=== PATIENT | female | born 1970 | race Caucasian/White ===

== ENCOUNTER → 2019-09-25 14:40 | Outpatient (BNVA) | payer OTHER, SELFPAY | PROVIDERS: Family Provider Family Medicine; PCP Family Medicine; Visit Provider Nurse Practitioner Psychiatric/Mental Health | DX: F41.1 Generalized anxiety disorder (principal) | CPT/HCPCS: 80061; 83036 ==

== ENCOUNTER → 2019-11-14 07:25 | Outpatient (BNVA) | payer MEDICARE, MEDICAID, SELFPAY | PROVIDERS: Family Provider Family Medicine; PCP Family Medicine; Visit Provider Nurse Practitioner Psychiatric/Mental Health | DX: F33.2 Major depressive disorder, recurrent severe without psychotic features (principal); F43.12 Post-traumatic stress disorder, chronic; F41.1 Generalized anxiety disorder; F17.210 Nicotine dependence, cigarettes, uncomplicated; F15.21 Other stimulant dependence, in remission | CPT/HCPCS: 99214 ==

== ENCOUNTER → 2019-11-19 14:56 | Outpatient (BNVA) | payer MEDICARE, MEDICAID, SELFPAY | PROVIDERS: Family Provider Family Medicine; PCP Family Medicine; Visit Provider Social Worker Clinical | DX: F41.1 Generalized anxiety disorder (principal); F15.21 Other stimulant dependence, in remission; F43.12 Post-traumatic stress disorder, chronic; F33.2 Major depressive disorder, recurrent severe without psychotic features | CPT/HCPCS: 90834 ==

== ENCOUNTER → 2020-03-20 09:05 | Outpatient (BNVA) | payer MEDICARE, MEDICAID, SELFPAY ==
[2019-09-26 11:36] VITALS: BP 154/97; BMI 40.2
== END ==
PROVIDERS: Family Provider Family Medicine; PCP Family Medicine; Visit Provider Nurse Practitioner Psychiatric/Mental Health
DX: F33.2 Major depressive disorder, recurrent severe without psychotic features (principal); F43.12 Post-traumatic stress disorder, chronic; F41.1 Generalized anxiety disorder; F17.210 Nicotine dependence, cigarettes, uncomplicated; F15.21 Other stimulant dependence, in remission
CPT/HCPCS: 99214

== ENCOUNTER → 2020-05-19 08:11 | Outpatient (BNVA) | payer MEDICARE, MEDICAID, SELFPAY ==
[2019-09-26 11:36] VITALS: BP 154/97; BMI 40.2
== END ==
PROVIDERS: PCP Family Medicine; Visit Provider Nurse Practitioner Psychiatric/Mental Health
DX: F33.2 Major depressive disorder, recurrent severe without psychotic features (principal); F43.12 Post-traumatic stress disorder, chronic; F41.1 Generalized anxiety disorder; F17.210 Nicotine dependence, cigarettes, uncomplicated; F12.20 Cannabis dependence, uncomplicated; F15.21 Other stimulant dependence, in remission
CPT/HCPCS: 99214

== ENCOUNTER → 2020-08-28 13:26 | Outpatient (BNVA) | payer MEDICARE, MEDICAID, SELFPAY ==
[2019-09-26 11:36] VITALS: BP 154/97; BMI 40.2
== END ==
PROVIDERS: PCP Family Medicine; Visit Provider Specialist
DX: G43.711 Chronic migraine without aura, intractable, with status migrainosus (principal); G47.10 Hypersomnia, unspecified; R20.0 Anesthesia of skin; R20.2 Paresthesia of skin; F43.12 Post-traumatic stress disorder, chronic; E66.01 Morbid (severe) obesity due to excess calories; Z68.39 Body mass index [BMI] 39.0-39.9, adult; F17.210 Nicotine dependence, cigarettes, uncomplicated
CPT/HCPCS: 64615; 99214; J0585

== ENCOUNTER → 2020-10-15 08:01 | Outpatient (BNVA) | payer MEDICARE, MEDICAID, SELFPAY ==
[2019-09-26 11:36] VITALS: BP 154/97; BMI 40.2
== END ==
PROVIDERS: PCP Family Medicine; Visit Provider Nurse Practitioner Psychiatric/Mental Health
DX: F33.2 Major depressive disorder, recurrent severe without psychotic features (principal); F43.12 Post-traumatic stress disorder, chronic; F41.1 Generalized anxiety disorder; F17.210 Nicotine dependence, cigarettes, uncomplicated; F12.20 Cannabis dependence, uncomplicated; Z79.899 Other long term (current) drug therapy; F15.21 Other stimulant dependence, in remission
CPT/HCPCS: 99214

== ENCOUNTER → 2020-11-11 08:29 | Outpatient (BNVA) | payer MEDICARE, MEDICAID, SELFPAY ==
[2019-09-26 11:36] VITALS: BP 154/97; BMI 40.2
== END ==
PROVIDERS: PCP Family Medicine; Visit Provider Nurse Practitioner Psychiatric/Mental Health
DX: F33.2 Major depressive disorder, recurrent severe without psychotic features (principal); F43.12 Post-traumatic stress disorder, chronic; F41.1 Generalized anxiety disorder; F17.210 Nicotine dependence, cigarettes, uncomplicated; F12.20 Cannabis dependence, uncomplicated; F15.21 Other stimulant dependence, in remission
CPT/HCPCS: 99214

== ENCOUNTER → 2021-01-16 08:27 | Outpatient (BNVA) | payer MEDICARE, MEDICAID, SELFPAY ==
[2019-09-26 11:36] VITALS: BP 154/97; BMI 40.2
== END ==
PROVIDERS: PCP Family Medicine; Visit Provider Nurse Practitioner Psychiatric/Mental Health
DX: F33.2 Major depressive disorder, recurrent severe without psychotic features (principal); F41.1 Generalized anxiety disorder; F17.210 Nicotine dependence, cigarettes, uncomplicated; F12.20 Cannabis dependence, uncomplicated; F15.21 Other stimulant dependence, in remission
CPT/HCPCS: 99214

== ENCOUNTER → 2021-01-29 12:22 | Outpatient (BNVA) | payer MEDICARE, MEDICAID, SELFPAY ==
[2019-09-26 11:36] VITALS: BP 154/97; BMI 40.2
== END ==
PROVIDERS: PCP Family Medicine; Visit Provider Social Worker Clinical
DX: F41.1 Generalized anxiety disorder (principal); F15.21 Other stimulant dependence, in remission; F43.12 Post-traumatic stress disorder, chronic; F33.2 Major depressive disorder, recurrent severe without psychotic features
CPT/HCPCS: 90834

== ENCOUNTER → 2021-03-10 07:38 | Outpatient (BNVA) | payer MEDICARE, MEDICAID, SELFPAY ==
[2019-09-26 11:36] VITALS: BP 154/97; BMI 40.2
== END ==
PROVIDERS: PCP Family Medicine; Visit Provider Social Worker Clinical
DX: F41.1 Generalized anxiety disorder (principal); F15.21 Other stimulant dependence, in remission; F43.12 Post-traumatic stress disorder, chronic; F33.2 Major depressive disorder, recurrent severe without psychotic features
CPT/HCPCS: 90834

== ENCOUNTER → 2021-03-11 07:08 | Outpatient (BNVA) | payer MEDICARE, MEDICAID, SELFPAY ==
[2019-09-26 11:36] VITALS: BP 154/97; BMI 40.2
== END ==
PROVIDERS: PCP Family Medicine; Visit Provider Nurse Practitioner Psychiatric/Mental Health
DX: F33.2 Major depressive disorder, recurrent severe without psychotic features (principal); F43.12 Post-traumatic stress disorder, chronic; F41.1 Generalized anxiety disorder; F17.210 Nicotine dependence, cigarettes, uncomplicated; F12.20 Cannabis dependence, uncomplicated; F15.21 Other stimulant dependence, in remission
CPT/HCPCS: 99214

== ENCOUNTER → 2021-04-06 07:42 | Outpatient (BNVA) | payer MEDICARE, MEDICAID, SELFPAY ==
[2019-09-26 11:36] VITALS: BP 154/97; BMI 40.2
== END ==
PROVIDERS: PCP Family Medicine; Visit Provider Social Worker Clinical
DX: F41.1 Generalized anxiety disorder (principal); F15.21 Other stimulant dependence, in remission; F43.12 Post-traumatic stress disorder, chronic; F33.2 Major depressive disorder, recurrent severe without psychotic features
CPT/HCPCS: 90834

== ENCOUNTER → 2021-04-08 07:44 | Outpatient (BNVA) | payer MEDICARE, MEDICAID, SELFPAY ==
[2019-09-26 11:36] VITALS: BP 154/97; BMI 40.2
== END ==
PROVIDERS: PCP Family Medicine; Visit Provider Nurse Practitioner Psychiatric/Mental Health
DX: F33.2 Major depressive disorder, recurrent severe without psychotic features (principal); F43.12 Post-traumatic stress disorder, chronic; F41.1 Generalized anxiety disorder; F17.210 Nicotine dependence, cigarettes, uncomplicated; F12.20 Cannabis dependence, uncomplicated; F15.20 Other stimulant dependence, uncomplicated
CPT/HCPCS: 99214

== ENCOUNTER → 2021-04-23 13:21 | Outpatient (BNVA) | payer MEDICARE, MEDICAID, SELFPAY ==
[2019-09-26 11:36] VITALS: BP 154/97; BMI 40.2
== END ==
PROVIDERS: PCP Family Medicine; Visit Provider Specialist
DX: G43.709 Chronic migraine without aura, not intractable, without status migrainosus (principal); R26.9 Unspecified abnormalities of gait and mobility; R42 Dizziness and giddiness; F41.1 Generalized anxiety disorder; G47.10 Hypersomnia, unspecified; F17.210 Nicotine dependence, cigarettes, uncomplicated
CPT/HCPCS: 64615; 99214; 99215; J0585

== ENCOUNTER → 2021-04-29 12:06 | Outpatient (BNVA) | payer MEDICARE, MEDICAID, SELFPAY ==
[2019-09-26 11:36] VITALS: BP 154/97; BMI 40.2
== END ==
PROVIDERS: PCP Family Medicine; Visit Provider Social Worker Clinical
DX: F41.1 Generalized anxiety disorder (principal); F15.21 Other stimulant dependence, in remission; F43.12 Post-traumatic stress disorder, chronic; F33.2 Major depressive disorder, recurrent severe without psychotic features
CPT/HCPCS: 90834

== ENCOUNTER 2021-05-06 11:24 | Outpatient (CLI) | payer OTHER, SELFPAY ==
[2019-09-26 11:36] VITALS: BP 154/97; BMI 40.2
--- NOTE | 2021-05-06 11:40 | XR_ITS ---
WS: [id number] LUMBAR SPINE: 3 VIEWS TECHNIQUE: AP, lateral and L5-S1 spot. HISTORY: BACK PAIN COMPARISON: None available. Moderate straightening of the normal lumbar lordosis. No fractures. Mild degenerative disc disease an d endplate osteophytes at L4-5 and L5-S1 with mild facet joint arthritis. No acute fracture. Pedicles are all identified. Mild bilateral narrowing and sclerosis of the SI joints. No erosions. Postsurgical changes are noted within the adnexa. XR/XR lumbar spine 2-3V* [id number] IMPRESSION: 1. Moderate straightening of the normal lumbar spine. 2. Mild lumbar spondylitic changes. No fractures.
== END 2021-05-06 11:25 | disposition home or self-care (01) ==
LOC: RAD 11:31
PROVIDERS: PCP Family Medicine; Visit Provider Dermatology
DX: Z02.71 Encounter for disability determination (principal); M54.5 Low back pain
CPT/HCPCS: 72100

== ENCOUNTER → 2021-05-13 07:38 | Outpatient (BNVA) | payer MEDICARE, MEDICAID, OTHER, SELFPAY ==
[2019-09-26 11:36] VITALS: BP 154/97; BMI 40.2
== END ==
PROVIDERS: PCP Family Medicine; Visit Provider Nurse Practitioner Psychiatric/Mental Health
DX: F33.2 Major depressive disorder, recurrent severe without psychotic features (principal); F43.12 Post-traumatic stress disorder, chronic; F41.1 Generalized anxiety disorder; F17.210 Nicotine dependence, cigarettes, uncomplicated; Z79.899 Other long term (current) drug therapy; F12.20 Cannabis dependence, uncomplicated; F15.20 Other stimulant dependence, uncomplicated
CPT/HCPCS: 99214

== ENCOUNTER → 2021-09-23 13:44 | Outpatient (BNVA) | payer MEDICARE, MEDICAID, SELFPAY ==
[2019-09-26 11:36] VITALS: BP 154/97; BMI 40.2
== END ==
PROVIDERS: PCP Family Medicine; Visit Provider Specialist
DX: G43.711 Chronic migraine without aura, intractable, with status migrainosus (principal); F17.210 Nicotine dependence, cigarettes, uncomplicated
CPT/HCPCS: 64615; 99213; J0585

== ENCOUNTER 2021-11-02 09:58 | Outpatient (CLI) | payer MEDICARE, MEDICAID, SELFPAY ==
[2019-09-26 11:36] VITALS: BP 154/97; BMI 40.2
--- NOTE | 2021-11-02 09:30 | MR_ITS ---
WS: [id number] MRI BRAIN WITHOUT CONTRAST HISTORY: G43.711 - Chronic migraine without aura, intractable, blackouts with amnesia. COMPARISON: 12/01/2016 TECHNIQUE: Diffusion imaging, multiplanar T1, T2 and FLAIR imaging obtained. No evidence for acute infarct or hemorrhage. Yu-white matter differentiation is normal. No signific ant atrophy. No hemorrhage. No remote or acute infarcts are volume loss. Ventricles and extra-axial spaces are normal. No inferior displacement of cerebellar tonsils. The sella turcica and pituitary gland are unremarkabl e. Dural venous sinuses and [place] demonstrate no abnormality on this unenhanced studies. Paranasal sinuses: Clear. Mastoid air cells: Normal. Calvarium and scalp: Intact. MR/MR head wo con* [id number] IMPRESSION: 1. Unremarkable noncontrast MRI brain. 2. No acute infarct or prior infarct. No significant microvascular disease.
== END 2021-11-02 09:59 | disposition home or self-care (01) ==
LOC: RAD 10:01
PROVIDERS: PCP Family Medicine; Visit Provider Specialist
DX: G43.711 Chronic migraine without aura, intractable, with status migrainosus (principal)
CPT/HCPCS: 70551

== ENCOUNTER → 2022-03-25 14:44 | Outpatient (BNVA) | payer MEDICARE, MEDICAID, SELFPAY ==
[2019-09-26 11:36] VITALS: BP 154/97; BMI 40.2
== END ==
PROVIDERS: PCP Family Medicine; Visit Provider Specialist
DX: R42 Dizziness and giddiness (principal); R55 Syncope and collapse; G43.711 Chronic migraine without aura, intractable, with status migrainosus; I10 Essential (primary) hypertension
CPT/HCPCS: 64615; 99213; 99214; J0585

== ENCOUNTER → 2022-09-30 08:38 | Outpatient (BNVA) | payer MEDICARE, MEDICAID, SELFPAY ==
[2019-09-26 11:36] VITALS: BP 154/97; BMI 40.2
== END ==
PROVIDERS: PCP Family Medicine; Visit Provider Specialist
DX: G43.711 Chronic migraine without aura, intractable, with status migrainosus (principal); Z71.89 Other specified counseling; F41.1 Generalized anxiety disorder; F43.12 Post-traumatic stress disorder, chronic
CPT/HCPCS: 64615; J0585

== ENCOUNTER 2022-12-30 17:01 | Emergency (ER) | payer MEDICARE, MEDICAID, SELFPAY ==
[2019-09-26 11:36] VITALS: BP 154/97; BMI 40.2
[2022-12-30 17:02] VITALS: BP 176/87; PULSE 72; RESP 18; TEMP 36.6; O2SAT 98; BMI 38.7
--- NOTE | 2022-12-30 17:03 | ED_ITS ---
HPI - Fall General: Chief Complaint: Fall Stated Complaint: FALL Time Seen by Provider: 12/30/22 17:03 History of Present Illness: Ms Mohr is a 52-year-old lady with history of frequent falls presenting to the emergency department due to fall with knee pain. She reports onset of fall with ambulation 2 days ago falling forward landing on her hands and knees. She immediately had pain and felt a popping/heard a popping in the right knee. Since that time she has been unable to ambulate and unable to extend her knee. She notes some distal tingling and coolness compared to contralateral side. Moderate to severe intensity symptoms. No other specific changes in health, exacerbating, or alleviating factors identified. Onset (ago): day(s) Fall from: standing Place fall occurred: home Loss of consciousness: None Prolonged down time: no Symptoms prior to fall: none Context: history of frequent falls Location of injury - extremities: Right: knee Severity: moderate Review of Systems General: Reports: 10 or more systems reviewed and unremarkable except in HPI and below PFSH ED PFSH: Medical History Cannabis dependence with current use Chronic post-traumatic stress disorder Generalized anxiety disorder Major depressive disorder, recurrent severe without psychotic features Nicotine dependence, cigarettes, uncomplicated Stimulant dependence, episodic Family History Mother Hypertension Hyperlipidemia Diabetes Stroke Parkinson disease Father , colon cancer No problems noted. Social History Smoking and tobacco status: current every day smoker (Vapes) cigarettes Packs smoked per day: 1 Years cigarettes smoked: 14 Quit status (tobacco): not considering quitting Second hand smoke exposure: Yes Smoking risk assessment/counseling performed?: Yes Tobacco counseling given: provider counseling Alcohol intake: current Alcohol intake frequency: holidays/special occasions only Alcohol type: hard liquor Substance/Drug Use: current Substance/Drug use frequency: daily Other substance/drug use details: prior heavy meth use, LSD, acid Desire information about substance/drug rehabilitation?: No Adopted: No Caregiver/support person: No Lives independently: Yes Household members: significant other Housing: Manufactured/Mobile home Marital status: Legally Marital status details: but living with current significant other for 5 years Number of children: 0 Number of grandchildren: 0 Highest education level completed: High School Graduate service: No Current occupational status: disabled Previous occupational history: wood working Pets and animals: Yes Pets & animals: cat(s) and dog(s) Pets & animal details: 2 dogs and 1 cat inside, 16 cats outside Leisure activites: other Leisure activities details: decorating her home, gardening, camping and floating Sexually active: Yes Do you think of yourself as: Straight/Heterosexual Current gender identity: Female Estrella/Religious: None Special estrella needs: No Agree to transfusion: Yes Financial difficulty paying for basics: Somewhat Hard Female Reproductive History: Para: 0 Spontaneous abortions: No Physical Exam Const: COMMON NORMALS: alert GENERAL APPEARANCE: cooperative and well developed HENMT: COMMON NORMALS: normocephalic and atraumatic HEAD & SCALP: normocephalic and atraumatic Eye: COMMON NORMALS: conjunctivae normal CONJUNCTIVA: Yes conjunctivae no rmal SCLERA: sclerae normal Neck/C-Spine: COMMON NORMALS: supple GENERAL: Yes trachea midline Resp: COMMON NORMALS: normal respiratory effort EFFORT & INSPECTION: Yes able to speak in complete sentences Cardio: COMMON NORMALS: regular rate and regular rhythm RATE: regular rate RHYTHM: regular rhythm OTHER: Palpable DP/PT bilateral GI: COMMON NORMALS: Soft to palpation PALPATION: Yes Soft to palpation and No Tenderness to palpation present (GI) Extremity: NARRATIVE EXTREMITY EXAM: Tenderness anterior knee palpation, soft tissue edema/joint effusion with some ecchymosis. GENERAL: Yes normal exam except as noted and No edema Neuro: COMMON NORMALS: moves all extremities SENSORIUM/ORIENTATION: Yes alert and No Orientation impaired Psych: COMMON NORMALS: mental status grossly normal and Normal thought process present THOUGHT PROCESS: Normal thought process present Course Vital Signs: Vital signs: Vital Signs Temperature 97.9 F 12/30/22 17:02 Pulse Rate 80 12/30/22 20:06 Respiratory Rate 18 12/30/22 17:24 Blood Pressure 149/104 12/30/22 19:00 Pulse Oximetry 97 12/30/22 20:06 Oxygen Delivery Me thod Room Air 12/30/22 19:00 MDM - Fall Medical Decision Making 52-year-old lady presenting with continued knee pain and difficulty straightening leg after fall. Patient has a frequent history following. Exam as above. X-ray notable for patella fracture. Patient given analgesia, I suspect most of patient's inability to extend leg is secondary to pain however exam is somewhat equivocal. Discussed case with orthopedics who came to evaluate the patient. Patient satisfactory for outpatient management, weightbearing as tolerated instructions given with knee immobilizer and crutches. I will message case management for orthopedic follow- up in the outpatient setting. Most likely etiology of patient's symptoms is patella fracture secondary to fall of the right knee. The results of ED evaluation were discussed with the patient including prescriptions and/or symptomatic cares (if applicable) including appropriate and responsible use, followup plan, and return precautions. The patient verbalized understanding and felt safe for discharge. Medical Records I reviewed the patient's medical records. Lab Data I reviewed the patient's lab results. Radiology Impressions Knee X-Ray 12/30/22 17:12 IMPRESSION: Nondisplaced fracture of the mid pole of the patella. Moderate knee joint effusion. Discharge Plan Discharge Patient Disposition: Home Clinical Impression: Fracture, patella Condition: Stable Prescriptions: New oxycodone 5 mg tablet 5 mg PO Q4H PRN (Reason: pain) Qty: 20 0RF No Action tizanidine 4 mg capsule 4 mg PO DAILY PRN lovastatin 10 mg tablet 10 mg PO DAILY gabapentin 300 mg capsule 300 mg PO TID metformin 500 mg tablet 500 mg PO DAILY omeprazole 20 mg capsule,delayed release(DR/EC) 20 mg PO DAILY hydroxyzine HCl 50 mg tablet 50 mg PO DAILY PRN (Reason: anxiety) Qty: 30 3RF Rx Instructions: Take one tablet daily as needed for anxiety fluoxetine [Prozac] 40 mg capsule 40 mg PO QAM Qty: 30 3RF Rx Instructions: Take one capsule every morning cyproheptadine 4 mg tablet 4 mg PO .HS Qty: 30 3RF Rx Instructions: Take one tablet at bedtime olanzapine [Zyprexa] 10 mg tablet 10 mg PO .bedtime Qty: 30 3RF Rx Instructions: Take one tablet at bedtime topiramate 100 mg tablet See Rx Instructions .ROUTE .COMPLEX Qty: 30 0RF Dose Instruction: TAKE 1 TABLET BY MOUTH ONCE DAILY. APPOINTMENT REQUIRED FOR FUTURE REFILLS Rx Instructions: TAKE 1 TABLET BY MOUTH ONCE DAILY. APPOINTMENT REQUIRED FOR FUTURE REFILLS propranolol 20 mg tablet See Rx Instructions .ROUTE .COMPLEX Qty: 60 3RF Dose Instruction: TAKE 1 TABLET BY MOUTH TWICE DAILY. APPOINTMENT REQUIRED FOR FUTURE REFILLS Rx Instructions: TAKE 1 TABLET BY MOUTH TWICE DAILY. APPOINTMENT REQUIRED FOR FUTURE REFILLS Discharge Orders: Discharge ED (Routine); Ordered 12/30/22 Ordered By: Yaakov Sahni Referrals: Michael Soto [Primary Care Provider] - Discharge Diet: Usual diet Discharge Activity: Limit activity as instructed Patient Instructions: Crutch Instructions (ED), Patellar Fracture (ED), Knee Immobilizer (ED), Opioid Safety Activity Restrictions/Additional Instructions: Thank you for visiting the emergency department. You were seen and evaluated for knee pain after fall. You are found fracture of the patella. This will be treated with a knee immobilizer and crutches. I will message case management for follow-up with the orthopedic surgeon. You should be contacted for follow-up. I will prescribe oxycodone, use this cautiously as discussed. You may use [id number]-[id number] medications such as acetaminophen and ibuprofen for pain however please do not exceed the daily recommended dosage as listed on the packaging and please keep in mind that many namebrand medications contain the same active ingredients. Please avoid these medications if previously instructed to do so by another physician due to other underlying medical condition. Elevation and ice will likely also help. Use a 1:2 ratio of on time to off time for ice. Do not apply directly to the skin. For example if you apply ice for 15 minutes ensure that you remove it for at least 30 minutes before reapplying. Return to the emergency department for uncontrolled symptoms, or anything else that you are concerned about and feel needs emergency department evaluation. Coding Level of Care Code ED Camp Coordinator for Christ Cowan
--- NOTE | 2022-12-30 17:12 | XRR_ITS ---
PROCEDURE INFORMATION: Exam: XR Right Knee Exam date and time: 12/30/2022 5:17 PM Age: 52 years old Clinical indication: Injury or trauma; Fall; Fracture, traumatic; Closed fracture; Patella or knee; Right; Additional info: Fall, knee pain anterior, unable to ambulate/extend TECHNIQUE: Imaging protocol: Radiologic exam of the right knee. Views: 3 views. COMPARISON: No relevant prior studies available. FINDINGS: Bones/joints: There is a nondisplaced fracture of the midpole of the patella. Moderate knee joint effusion. Soft tissues: Soft tissue swelling is seen overlying the knee. XR/XR knee RT 4V [id number] IMPRESSION: Nondisplaced fracture of the mid pole of the patella. Moderate knee joint effusion.
[2022-12-30 17:24] VITALS: RESP 18; O2SAT 97
[2022-12-30] MEDS: oxyCODONE 5 mg IR Tab/Cap PO (17:24)
[2022-12-30 18:51] VITALS: BP 142/97; PULSE 75; O2SAT 97
[2022-12-30 19:00] VITALS: BP 149/104; PULSE 69; O2SAT 95
--- NOTE | 2022-12-30 19:30 | PM.CONSULT ---
Providers/Reason For Consult Consulting Physician/Specialty*: Medardo Denney, /orthopedic surgery Reason for Consult*: Right patella fracture Requesting Physician: Dr. Sahni-emergency department Primary Care Provider: Michael Soto History of Present Illness History of Present Illness Linda is a 52-year-old lady with history of frequent falls presenting to the emergency department due to fall with knee pain.? She reports onset of fall with ambulation 2 days ago falling forward landing on her hands and knees.? She immediately had pain and felt a popping/heard a pop in the right knee.? Since that time she has been unable to ambulate and unable to fully extend her knee.? Moderate to severe intensity symptoms.? No other specific changes in health, exacerbating, or alleviating factors identified. Patient denies any fevers chills chest pain shortness of breath nausea or vomiting. Patient states she last ate since yesterday. Review of Systems General: Reports: 10 or more systems reviewed and unremarkable except in HPI and below Medications/Allergies Home Medications Medication Instructions Recorded Confirmed Last Taken Type lovastatin 10 mg tablet 10 mg PO DAILY 08/24/19 09/30/22 Unknown History tizanidine 4 mg capsule 4 mg PO DAILY PRN 08/24/19 09/30/22 Unknown History metformin 500 mg tablet 500 mg PO DAILY 04/30/20 09/30/22 Unknown History omeprazole 20 mg capsule,delayed 20 mg PO DAILY 04/30/20 09/30/22 Unknown History release hydroxyzine HCl 50 mg tablet 50 mg PO DAILY PRN anxiety #30 tabs 04/08/21 09/30/22 Unknown Rx gabapentin 300 mg capsule 300 mg PO TID 05/12/21 09/30/22 Unknown History fluoxetine 40 mg capsule (Prozac) 40 mg PO QAM #30 caps 05/13/21 09/30/22 Unknown Rx cyproheptadine 4 mg tablet 4 mg PO .HS #30 tabs 07/01/21 09/30/22 Unknown Rx olanzapine 10 mg tablet (Zyprexa) 10 mg PO .bedtime #30 tabs 07/01/21 09/30/22 Unknown Rx topiramate 100 mg tablet See Rx Instructions .Route 01/18/22 09/30/22 Unknown Rx .COMPLEX #30 tabs propranolol 20 mg tablet See Rx Instructions .Route 06/09/22 09/30/22 Unknown Rx .COMPLEX #60 tabs oxycodone 5 mg tablet 5 mg PO Q4H PRN pain #20 tabs 12/30/22 Unknown Rx Allergies Allergy/AdvReac Type Severity Reaction Status Date / Time No Known Allergies Allergy Verified 12/30/22 17:06 PFSH Acute PFSH: Medical History Cannabis dependence with current use Chronic post-traumatic stress disorder Generalized anxiety disorder Major depressive disorder, recurrent severe without psychotic features Nicotine dependence, cigarettes, uncomplicated Stimulant dependence, episodic Family History Mother Hypertension Hyperlipidemia Diabetes Stroke Parkinson disease Father , colon cancer No problems noted. Social History Smoking and tobacco status: current every day smoker (Vapes) cigarettes Packs smoked per day: 1 Years cigarettes smoked: 14 Quit status (tobacco): not considering quitting Second hand smoke exposure: Yes Smoking risk assessment/counseling performed?: Yes Tobacco counseling given: provider counseling Alcohol intake: current Alcohol intake frequency: holidays/special occasions only Alcohol type: hard liquor Substance/Drug Use: current Substance/Drug use frequency: daily Other substance/drug use details: prior heavy meth use, LSD, acid Desire information about substance/drug rehabilitation?: No Adopted: No Caregiver/support person: No Lives independently: Yes Household members: significant other Housing: Manufactured/Mobile home Marital status: Legally Marital status details: but living with current significant other for 5 years Number of children: 0 Number of grandchildren: 0 Highest education level completed: High School Graduate service: No Current occupational status: disabled Previous occupational history: wood working Pets and animals: Yes Pets & animals: cat(s) and dog(s) Pets & animal details: 2 dogs and 1 cat inside, 16 cats outside Leisure activites: other Leisure activities details: decorating her home, gardening, camping and floating Sexually active: Yes Do you think of yourself as: Straight/Heterosexual Current gender identity: Female Estrella/Mandaeism: None Special estrella needs: No Agree to transfusion: Yes Financial difficulty paying for basics: Somewhat Hard Female Reproductive History: Para: 0 Spontaneous abortions: No Vitals/I&O/Wt Last Vital Signs Temp 97.9 F 12/30/22 17:02 Pulse 80 12/30/22 20:06 Resp 18 12/30/22 17:24 BP 149/104 12/30/22 19:00 Pulse Ox 97 12/30/22 20:06 O2 Del Method Room Air 12/30/22 19:00 Physical Exam Narrative: Examination of the right knee: Patient has tenderness palpation over the right patella no palpable defect noted. Patient has a palpable joint effusion. No erythema noted mild swelling noted with ecchymosis about the anterior aspect of the right knee. Patient is unable to perform a straight leg raise off of the bed secondary to pain and discomfort. Patient is able to wiggle toes plantarflex and dorsiflex ankle. Sensations intact to light touch distally distal pulses are palpable calves are soft and nontender compartments are soft and compressible. Secondary survey examination no tenderness to palpation or painful range of motion of the bilateral upper extremity joints as well as the left lower extremity. Data Xray Ortho: My impression: X-rays multiple views of the right knee reviewed and personally interpreted by myself demonstrating a transverse right patella fracture that on lateral appears incomplete and this is in good clinical alignment no significant diastases, joint effusion noted no significant arthritic changes noted. A&P Assessment and plan (1) Fracture, patella: Plan Patient presented to the emergency department with right knee pain she was found to have a transverse patella fracture orthopedics was consulted for evaluation and recommendations given this may be a potential surgical intervention on my review of x-rays these are nondisplaced and this can be amendable to nonoperative treatment I feel as though her extensor mechanism is unable to be examined secondary more to her pain. She has on x-ray appears to be an incomplete fracture when viewing the lateral this does not appear to violate the patellofemoral cortex at this point time recommending knee immobilizer and patient may weight-bear as tolerated to the right lower extremity with care to continue to keep knee in full extension until follow-up. Recommend ice and elevation as needed for pain and swelling. Patient should be discharged on pain control. She will follow-up in the orthopedic office in 2 weeks. Goals for nonoperative treatment we will continue to follow postoperatively with x-rays. Plan for follow-up and repeat x-rays in 2 weeks. At that point in time we will transition patient into a Greer hinged brace goals will be to progress to 0 to 30 degrees at 4 weeks with 0 to 60 degrees at 5 weeks and 0 to 90 degrees at 6 weeks and within goal after 6 weeks to hopefully discontinuing brace and continue to work on progressive range of motion. Patient understands and agrees with current plan. All questions answered. Patient understands strict adherence full extension for 3 weeks. Appreciate you me to partake in the care of this patient. Patient may have a diet. Plan to discharge from ED per ED physician. Coding Level of Care Code Acute Code for [facility] Fwd Diagnoses Fracture, patella S82.009A Time Spent (min) 30
[2022-12-30] MEDS: oxyCODONE 5 mg IR Tab/Cap 15 MG PO (20:02)
[2022-12-30 20:06] VITALS: PULSE 80; O2SAT 97
--- NOTE | 2022-12-31 08:15 | DCPLANNER ---
Addendum entered by Selam Rodriguez 01/10/23 11:18: This appointment was cancelled Addendum entered by Selam Rodriguez 12/31/22 10:01: Patient has a follow up appointment scheduled for Saturday, January 07, 2023 at 11:00 with Ihsan Curtis at ortho. Original Note: property manager had message to schedule a follow up appointment for patient with ortho. property manager sent patients information to the front office staff at ortho. Patients information will be printed and reviewed. Clinic will call patient with appointment information.
== END 2022-12-30 20:07 | disposition home or self-care (01) ==
PROVIDERS: Emergency Provider Emergency Medicine; PCP Family Medicine
DX: S82.091A Other fracture of right patella, initial encounter for closed fracture (principal); Z79.84 Long term (current) use of oral hypoglycemic drugs; F17.290 Nicotine dependence, other tobacco product, uncomplicated; W19.XXXA Unspecified fall, initial encounter
CPT/HCPCS: 29530; 73564; 99283; E0114

== ENCOUNTER → 2023-01-20 14:00 | Outpatient (BNVA) | payer MEDICARE, MEDICAID, SELFPAY ==
[2019-09-26 11:36] VITALS: BP 154/97; BMI 40.2
== END ==
PROVIDERS: PCP Family Medicine; Visit Provider Nurse Practitioner Family
DX: S82.034A Nondisplaced transverse fracture of right patella, initial encounter for closed fracture (principal); W19.XXXA Unspecified fall, initial encounter
CPT/HCPCS: 73562; 99213

== ENCOUNTER 2023-01-20 16:11 | Outpatient (CLI) | payer MEDICARE, MEDICAID, SELFPAY ==
[2019-09-26 11:36] VITALS: BP 154/97; BMI 40.2
== END 2023-01-20 16:12 | disposition home or self-care (01) ==
LOC: SPT 16:12
PROVIDERS: PCP Family Medicine; Visit Provider Nurse Practitioner Family
DX: Z46.89 Encounter for fitting and adjustment of other specified devices (principal); S82.001D Unspecified fracture of right patella, subsequent encounter for closed fracture with routine healing; X58.XXXD Exposure to other specified factors, subsequent encounter
CPT/HCPCS: 97760; L1832

== ENCOUNTER 2023-01-29 17:31 | Emergency (ER) | payer MEDICARE, MEDICAID, SELFPAY ==
[2019-09-26 11:36] VITALS: BP 154/97; BMI 40.2
[2023-01-29 17:32] VITALS: BP 153/97; PULSE 101; RESP 18; TEMP 37.1; O2SAT 98
[2023-01-29 18:12] VITALS: BP 128/87; PULSE 83; RESP 18; O2SAT 96
--- NOTE | 2023-01-29 18:34 | XRR_ITS ---
PROCEDURE INFORMATION: Exam: XR Chest Exam date and time: 01/29/2023 6:43 PM Age: 52 years old Clinical indication: Pain; Chest pressure; Additional info: Cp TECHNIQUE: Imaging protocol: Radiologic exam of the chest. Views: 1 view. COMPARISON: CR XR chest 2V* [id number] 03/30/2016 6:11 AM FINDINGS: Lungs: Unremarkable. No consolidation. Pleural spaces: Unremarkable. No pleural effusion. No pneumothorax. Heart/Mediastinum: Unremarkable. No cardiomegaly. Bones/joints: Unremarkable. XR/XR chest 1V portable [id number] IMPRESSION: No acute findings.
--- NOTE | 2023-01-29 18:35 | ED_ITS ---
HPI - Chest Pain General: Chief Complaint: Chest Pain Stated Complaint: CHEST PAIN Time Seen by Provider: 01/29/23 18:02 History of Present Illness: 52-year-old female with a history of chest pain several years ago. She had a cath at that point, with no coronary disease found. She states he has a history of heart failure though. She was at home watching Aquaman, resting, and began to get chest discomfort. It lasted until EMS gave her 4 aspirin and a nitroglycerin. She was short of breath. Nonradiating pain. Pain is essentially gone now Associated symptoms: Reports dyspnea and nausea; Deny abdominal pain, fever(s), palpitations or vomiting Review of Systems Const: Denies: fever(s) ENMT: Denies: throat pain Card: Reports: chest pain; Denies: palpitations Resp: Reports: dyspnea; Denies: productive cough or non-productive cough GI: Reports: nausea; Denies: abdominal pain or vomiting Musc: Denies: neck pain Skin/Breast: Denies: rash Psych: Reports: anxiety PFSH ED PFSH: Medical History Cannabis dependence with current use Chronic post-traumatic stress disorder Generalized anxiety disorder Major depressive disorder, recurrent severe without psychotic features Nicotine dependence, cigarettes, uncomplicated Stimulant dependence, episodic Family History Mother Hypertension Hyperlipidemia Diabetes Stroke Parkinson disease Father , colon cancer No problems noted. Social History Smoking and tobacco status: current every day smoker (Vapes) cigarettes Packs smoked per day: 1 Years cigarettes smoked: 14 Quit status (tobacco): not considering quitting Second hand smoke exposure: Yes Smoking risk assessment/counseling performed?: Yes Tobacco counseling given: provider counseling Alcohol intake: current Alcohol intake frequency: holidays/special occasions only Alcohol type: hard liquor Substance/Drug Use: current Substance/Drug use frequency: daily Other substance/drug use details: prior heavy meth use, LSD, acid Desire information about substance/drug rehabilitation?: No Adopted: No Caregiver/support person: No Lives independently: Yes Household members: significant other Housing: Manufactured/Mobile home Marital status: Legally Marital status details: but living with current significant other for 5 years Number of children: 0 Number of grandchildren: 0 Highest education level completed: High School Graduate service: No Current occupational status: disabled Previous occupational history: wood working Pets and animals: Yes Pets & animals: cat(s) and dog(s) Pets & animal details: 2 dogs and 1 cat inside, 16 cats outside Leisure activites: other Leisure activities details: decorating her home, christian ening, camping and floating Sexually active: Yes Do you think of yourself as: Straight/Heterosexual Current gender identity: Female Estrella/Hinduism: None Special estrella needs: No Agree to transfusion: Yes Financial difficulty paying for basics: Somewhat Hard Female Reproductive History: Para: 0 Spontaneous abortions: No Physical Exam Const: COMMON NORMALS: no acute distress GENERAL APPEARANCE: cooperative; not ill appearing and not frail appearing HENMT: COMMON NORMALS: normocephalic, atraumatic and Normal external nose present HEAD & SCALP: normocephalic and atraumatic FACE & SINUS: normal facial exam and face symmetric NOSE: Normal external nose present Eye: COMMON NORMALS: Equal, round and reactive pupils present and EOMs intact bilaterally PUPIL: Yes Equal, round and reactive pupils present Neck/C-Spine: GENERAL: Yes trachea midline Chest: CHEST: Yes Symmetrical chest wall rise Resp: COMMON NORMALS: normal respiratory effort, No retractions, No use of accessory muscles and clear to auscultation bilaterally AUSCULTATION: clear to auscultation bilaterally Cardio: COMMON NORMALS: regular rate and regular rhythm RATE: regular rate RHYTHM: regular rhythm GI: COMMON NORMALS: Normal to inspection, nondistended, normoactive bowel sounds present Extremity: COMMON NORMALS: no pedal edema Neuro: KAREN COMA SCALE: document GCS findings [place] coma scale eye opening: Spontaneous [place] coma scale verbal response: Orientated [place] coma scale motor response: Obey commands Karen coma scale total score: 15 SENSORY EXAM: Yes extremities (intact) Psych: COMMON NORMALS: speech normal SPEECH: Yes normal speech Skin: COMMON NORMALS: no rashes or lesions noted GENERAL SKIN EXAM: no rashes or lesions noted Course Vital Signs: Vital signs: Vital Signs Temperature 98.8 F 01/29/23 21:40 Pulse Rate 73 01/29/23 21:40 Respiratory Rate 16 01/29/23 21:40 Blood Pressure 136/82 01/29/23 21:40 Pulse Oximetry 96 01/29/23 21:40 Oxygen Delivery Me thod Room Air 01/29/23 17:32 MDM - Chest Pain Medical Decision Making 52-year-old female with resolved chest pain. This is after nitroglycerin. Vitals have been stable. Blood pressure 136/82 heart rate 73, temperature 98.8 respirations 16. CBC is essentially normal. BMP is normal. Liver enzymes are normal. Delta troponin is 0. Chest x-ray is negative. With resolution in her pain, she will be allowed discharge. Close outpatient follow-up and to return if worsening symptoms. Lab Data 01/29/23 17:45 01/29/23 19:00 Radiology Impressions Chest X-Ray 01/29/23 18:34 IMPRESSION: No acute findings. Laboratory Results WBC 9.2 10^3/uL (4.0-10.0) 01/29/23 17:45 RBC 5.41 10^6/uL (4.1-5.3) H 01/29/23 17:45 Hgb 16.8 g/dL (11.5-15.3) H 01/29/23 17:45 Hct 49.0 % (37.0-47.0) H 01/29/23 17:45 MCV 90.6 fl (81-99) 01/29/23 17:45 MCH 31.1 pg (28.0-34.0) 01/29/23 17:45 MCHC 34.3 g/dL (30.0-36.0) 01/29/23 17:45 RDW 13.6 % (12.1-15.1) 01/29/23 17:45 Plt Count 192 10^3/cmm (130-400) 01/29/23 17:45 MPV 12.5 fL (7.4-10.4) H 01/29/23 17:45 Neut % (Auto) 65.5 % 01/29/23 17:45 Lymph % (Auto) 24.3 % 01/29/23 17:45 [place] % (Auto) 7.3 % 01/29/23 17:45 Eos % (Auto) 2.4 % 01/29/23 17:45 Baso % (Auto) 0.2 % 01/29/23 17:45 Neut # (Auto) 6.00 10^3/uL (1.8-7.7) 01/29/23 17:45 Lymph # (Auto) 2.2 10^3/uL (0.8-4.8) 01/29/23 17:45 [place] # (Auto) 0.7 10^3/uL (0.2-0.9) 01/29/23 17:45 Eos # (Auto) 0.2 10^3/uL (0.0-0.8) 01/29/23 17:45 Baso # (Auto) 0.0 10^3/uL (0.0-0.1) 01/29/23 17:45 Nucleated RBC % (auto) 0 % 01/29/23 17:45 Nucleated RBCs # 0.0 /100WBC 01/29/23 17:45 PT 13.00 SECONDS (12.1-14.9) 01/29/23 19:00 INR 0.95 (0.8-1.2) 01/29/23 19:00 APTT 27.0 SECONDS (23.9-36.7) 01/29/23 19:00 D-Dimer 0.32 ug/mIFEU (0-0.59) 01/29/23 19:00 Sodium 136 mmol/L (136-145) 01/29/23 19:00 Potassium 3.8 mmol/L (3.5-5.1) 01/29/23 19:00 Chloride 105 mmol/L (98-107) 01/29/23 19:00 Carbon Dioxide 22 mmol/L (22-29) 01/29/23 19:00 Anion Gap 12.8 (5-19) 01/29/23 19:00 BUN 13 mg/dL (6-20) 01/29/23 19:00 Creatinine 0.9 mg/dL (0.5-0.9) 01/29/23 19:00 GFR Calculation 65.2 mL/min (90-130) L 01/29/23 19:00 Glucose 102 mg/dL (65-115) 01/29/23 19:00 Calculated Osmolality 282 mOsm/kg (285-295) L 01/29/23 19:00 Calcium 8.9 mg/dL (8.5-10.5) 01/29/23 19:00 Total Bilirubin 0.2 mg/dL (0.15-1.2) 01/29/23 19:00 AST 17 U/L (0-32) 01/29/23 19:00 ALT 26 U/L (0-33) 01/29/23 19:00 Alkaline Phosphatase 102 U/L (35-105) 01/29/23 19:00 Creatine Kinase 46 U/L (26-192) 01/29/23 19:00 Troponin T Baseline 6 ng/L (0-10) 01/29/23 19:00 Troponin T 120 Minute 6.00 ng/L (0-10) 01/29/23 20:52 Delta Troponin T TNP 01/29/23 20:52 NT-Pro-B Natriuret Pep 36 pg/mL (0-125) 01/29/23 19:00 Total Protein 6.6 g/dL (6.6-8.7) 01/29/23 19:00 Albumin 4.3 g/dL (3.5-5.2) 01/29/23 19:00 Globulin 2.3 g/dL (1.3-4.6) 01/29/23 19:00 Discharge Plan Discharge Patient Disposition: Home Clinical Impression: Chest pain Condition: Stable Prescriptions: No Action tizanidine 4 mg capsule 4 mg PO DAILY PRN lovastatin 10 mg tablet 10 mg PO DAILY gabapentin 300 mg capsule 300 mg PO TID metformin 500 mg tablet 500 mg PO DAILY omeprazole 20 mg capsule,delayed release(DR/EC) 20 mg PO DAILY hydroxyzine HCl 50 mg tablet 50 mg PO DAILY PRN (Reason: anxiety) Qty: 30 3RF Rx Instructions: Take one tablet daily as needed for anxiety fluoxetine [Prozac] 40 mg capsule 40 mg PO QAM Qty: 30 3RF Rx Instructions: Take one capsule every morning (DME) Carol[place] Knee Brace See Rx Instructions .Route .MEDSUPPLY Qty: 1 0RF Rx Instructions: As directed cyproheptadine 4 mg tablet 4 mg PO .HS Qty: 30 3RF Rx Instructions: Take one tablet at bedtime olanzapine [Zyprexa] 10 mg tablet 10 mg PO .bedtime Qty: 30 3RF Rx Instructions: Take one tablet at bedtime topiramate 100 mg tablet See Rx Instructions .ROUTE .COMPLEX Qty: 30 0RF Dose Instruction: TAKE 1 TABLET BY MOUTH ONCE DAILY. APPOINTMENT REQUIRED FOR FUTURE REFILLS Rx Instructions: TAKE 1 TABLET BY MOUTH ONCE DAILY. APPOINTMENT REQUIRED FOR FUTURE REFILLS propranolol 20 mg tablet See Rx Instructions .ROUTE .COMPLEX Qty: 60 3RF Dose Instruction: TAKE 1 TABLET BY MOUTH TWICE DAILY. APPOINTMENT REQUIRED FOR FUTURE REFILLS Rx Instructions: TAKE 1 TABLET BY MOUTH TWICE DAILY. APPOINTMENT REQUIRED FOR FUTURE REFILLS oxycodone 5 mg tablet 5 mg PO Q4H PRN (Reason: pain) Qty: 20 0RF Discharge Orders: Discharge ED (Routine); Ordered 01/29/23 Ordered By: John Whalen Referrals: Michael Soto [Primary Care Provider] - 1-3 days Patient Instructions: Chest Pain (ED) Activity Restrictions/Additional Instructions: Definite cause of chest pain was not determined by your evaluation in the emergency department today. Return for return of chest pain, worsening shortness of breath, any other concerning symptoms. Follow-up with your doctor this week for further evaluation. Coding Level of Care Code ED Mortar Mixer Operator for Christ Cowan
[2023-01-29 18:42] LABS: Basophils % 0.2 %; Eosinophils # 0.2 10^3/uL (0.0-0.8); Eosinophils % 2.4 %; Hemoglobin 16.8 g/dL (11.5-15.3); Lymphocytes # 2.2 10^3/uL (0.8-4.8); Lymphocytes % 24.3 %; Mean Corpuscular HGB Conc 34.3 g/dL (30.0-36.0); Mean Corpuscular Hemoglobin 31.1 pg (28.0-34.0); Mean Corpuscular Volume 90.6 fl (81-99); Mean Platelet Volume 12.5 fL (7.4-10.4); Monocytes # 0.7 10^3/uL (0.2-0.9); Monocytes % 7.3 %; Neutrophils % 65.5 %; Nucleated Red Blood Cells % 0 %; Platelet Count 192 10^3/cmm (130-400); Red Blood Count 5.41 10^6/uL (4.1-5.3); Red Cell Distribution Width 13.6 % (12.1-15.1); White Blood Count 9.2 10^3/uL (4.0-10.0)
[2023-01-29 19:05] VITALS: BP 136/82; PULSE 83; RESP 16; O2SAT 97
[2023-01-29 19:13] LABS: INR 0.95 (0.8-1.2)
[2023-01-29 19:16] LABS: D Dimer 0.32 ug/mIFEU (0-0.59)
[2023-01-29 19:31] LABS: Troponin(5th) Baseline 6 ng/L (0-10)
[2023-01-29 19:39] LABS: Alanine Aminotransferase 26 U/L (0-33); Albumin Level 4.3 g/dL (3.5-5.2); Alkaline Phosphatase 102 U/L (35-105); Anion Gap 12.8 (5-19); Aspartate Amino Transferase 17 U/L (0-32); Blood Urea Nitrogen 13 mg/dL (6-20); Calcium 8.9 mg/dL (8.5-10.5); Carbon Dioxide 22 mmol/L (22-29); Chloride 105 mmol/L (98-107); Creatine Phosphokinase 46 U/L (26-192); Globulin 2.3 g/dL (1.3-4.6); Glomerular Filtration Rate 65.2 mL/min (90-130); Glucose 102 mg/dL (65-115); NT Pro B Type Natriuretic Pept 36 pg/mL (0-125); Osmolality Calculated 282 mOsm/kg (285-295); Potassium 3.8 mmol/L (3.5-5.1); Sodium 136 mmol/L (136-145); Total Bilirubin 0.2 mg/dL (0.15-1.2); Total Protein 6.6 g/dL (6.6-8.7)
[2023-01-29 21:14] VITALS: PULSE 73; RESP 16; O2SAT 96
[2023-01-29 21:40] VITALS: BP 136/82; PULSE 73; RESP 16; TEMP 37.1; O2SAT 96
== END 2023-01-29 21:41 | disposition home or self-care (01) ==
PROVIDERS: Emergency Provider Emergency Medicine; PCP Family Medicine
DX: R07.9 Chest pain, unspecified (principal); Z79.84 Long term (current) use of oral hypoglycemic drugs; F17.290 Nicotine dependence, other tobacco product, uncomplicated
CPT/HCPCS: 36415; 71045; 80053; 82550; 83880; 84484; 85025; 85378; 85610; 85730; 99285

== ENCOUNTER → 2023-04-14 09:54 | Outpatient (BNVA) | payer MEDICARE, MEDICAID, SELFPAY ==
[2019-09-26 11:36] VITALS: BP 154/97; BMI 40.2
== END ==
PROVIDERS: PCP Family Medicine; Visit Provider Specialist
DX: G43.711 Chronic migraine without aura, intractable, with status migrainosus (principal)
CPT/HCPCS: 64615; 99213; J0585

== ENCOUNTER → 2023-04-20 07:55 | Outpatient (BNVA) | payer MEDICARE, MEDICAID, SELFPAY ==
[2019-09-26 11:36] VITALS: BP 154/97; BMI 40.2
== END ==
PROVIDERS: PCP Family Medicine; Referring Provider Specialist; Visit Provider Specialist
DX: R55 Syncope and collapse (principal); R42 Dizziness and giddiness
CPT/HCPCS: 95813; 95816

== ENCOUNTER → 2023-04-26 12:51 | Outpatient (BNVA) | payer MEDICARE, MEDICAID, SELFPAY ==
[2019-09-26 11:36] VITALS: BP 154/97; BMI 40.2
== END ==
PROVIDERS: PCP Family Medicine; Referring Provider Nurse Practitioner Family; Visit Provider Surgery
DX: Z12.11 Encounter for screening for malignant neoplasm of colon (principal); Z80.0 Family history of malignant neoplasm of digestive organs; K21.9 Gastro-esophageal reflux disease without esophagitis
CPT/HCPCS: 99024; 99203

== ENCOUNTER 2023-04-28 12:54 | Outpatient (CLI) | payer MEDICARE, MEDICAID, SELFPAY ==
[2019-09-26 11:36] VITALS: BP 154/97; BMI 40.2
--- NOTE | 2023-04-28 13:30 | USCV_ITS ---
Linda Mohr Age: 52 Gender: F : 1970 Exam Date: 04/28/2023 13:08 Ordering Phys: Alla Ramirez MD Technologist: Adelina Freitas [place] [facility] [place]: Syncope with collapse BP: 140 / 70 HR: 66 Rhythm: Sinus Technical Quality: Adequate MEASUREMENTS (Male / Female) Normal Values 2D ECHO LV Diastolic Diameter PLAX 3.9 cm 4.2 - 5.9 / 3.9 - 5.3 cm LV Systolic Diameter PLAX 2.9 cm LV Chamber Size 2.6 cm IVS Diastolic Thickness 1.4 cm 0.6 - 1.0 / 0.6 - 0.9 cm IVS Systolic Thickness 1.7 cm LVPW Diastolic Thickness 1.6 cm 0.6 - 1.0 / 0.6 - 0.9 cm LVPW Systolic Thickness 1.9 cm RV Chamber Size 3.1 cm LVOT Diameter 2.1 cm LV Ejection Fraction 2D Teich 48.1 % LV Ejection Fraction MOD 2C 30.1 % LV Ejection Fraction 2C AL 35.2 % LA Diameter 3.5 cm LA Width 2.5 cm LA Height 3.8 cm RA Width 3.9 cm RA Height 4.5 cm Aorta at Sinotubular Diameter 3.3 cm IVC Diameter 1.4 cm M-MODE Aortic Annulus Diameter 3.4 cm LA Ao Ratio MM 1.2 MV E Point Septal Separation 0.8 cm DOPPLER AV Peak Velocity 127.0 cm/s LVOT Peak Velocity 114.0 cm/s AV Area Cont Eq vti 3.1 cm squared AV Area Cont Eq pk 3.0 cm squared MV Area PHT 3.7 cm squared Mitral E to A Ratio 1.1 MV E' Velocity 49.0 cm/s Mitral E to MV E' Ratio 10.0 Mitral E to LV E' Lateral Ratio 10.7 Mitral E to LV E' Septal Ratio 9.5 TR Peak Velocity 106.4 cm/s TR Peak Gradient 4.5 mmHg TR Mean Velocity 69.6 cm/s TR Mean Gradient 2.2 mmHg TR Velocity Time Integral 23.5 cm TV Peak E Velocity 48.0 cm/s PV Peak Velocity 71.0 cm/s RV Acceleration Time 0.2 s RV Ejection Time 0.3 s RV AcT/ET 0.5 FINDINGS Left Ventricle Possibly normal LV size and ejection fraction of 55%. Segmental wall motion analysis difficult because of the poor ultrasonic window. No gross abnormalities noted Right Ventricle Appears to be mildly dilated with normal ejection fraction. Right Atrium Appears to be mildly dilated Left Atrium Possibly of normal size Mitral Valve No gross abnormalities noted Aortic Valve No gross abnormalities noted. Tricuspid Valve Trace tricuspid valve regurgitation. Pulmonic Valve Pulmonic valve not well visualized. Pericardium No pericardial effusion. Aorta Normal aortic annulus size. IVC Inferior vena cava not visualized. CONCLUSIONS Possibly normal LV size and ejection fraction of 55%. Segmental wall motion analysis difficult because of the poor ultrasonic window. No gross abnormalities noted. The right atrium and right ventricle appears to be mildly dilated. No gross abnormalities noted in the aortic/mitral valves. No pericardial effusion. Technically difficult study because of poor ultrasonic window Dr Patel Mendiola MD FACC (Electronically Signed) Final Date: 29 April 2023 20:47 S
== END 2023-04-28 12:55 | disposition home or self-care (01) ==
LOC: RAD 12:54
PROVIDERS: PCP Family Medicine; Visit Provider Specialist
DX: R55 Syncope and collapse (principal)
CPT/HCPCS: 93306

== ENCOUNTER 2023-07-20 07:10 | Day surgery (SDC) | payer MEDICARE, MEDICAID, SELFPAY ==
[2019-09-26 11:36] VITALS: BP 154/97; BMI 40.2
[2023-07-20 07:34] VITALS: BP 159/94; PULSE 80; RESP 18; TEMP 36.6; O2SAT 97; BMI 39.9
[2023-07-20] MEDS: sodium chloride 0.9% 1,000 ML 30 ML IV (07:46)
[2023-07-20 07:50] LABS: Glucose Point of Care 119 mg/dL (70-110)
--- NOTE | 2023-07-20 07:55 | P.ANESASSM_ITS ---
Documented by User: Jasmeet Felder, MIKI 07/20/23 08:30 Pre-Anesthetic Assessment Height/Weight: Height 1.65 m Weight 108.862 kg Temp Pulse Resp BP Pulse Ox O2 Del Method 97.9 F 80 18 159/94 97 Room Air 07/20/23 07:34 07/20/23 07:34 07/20/23 07:34 07/20/23 07:34 07/20/23 07:34 07/20/23 07:34 Operation Date: 07/20/23 08:15 Proposed Procedures p [id number] EGD [id number] Colonscopy K21.9,Z80.0,Z12.11(Not Applicable) - DO aranza Dee Colonoscopy(Not Applicable) - Kam Suazo DO Last intake: Intake Last Liquid Date 07/19/23 Last Liquid Time 23:30 Last Solid Date 07/18/23 Last Solid Time 20:00 CV/HEM Hypertension CONCLUSIONS Possibly normal LV size and ejection fraction of 55%. Segmental wall motion analysis difficult because of the poor ultrasonic window. No gross abnormalities noted. The right atrium and right ventricle appears to be mildly dilated. No gross abnormalities noted in the aortic/mitral valves. No pericardial effusion. Technically difficult study because of poor ultrasonic window GI Gastroesophageal Reflux Disease Family history of colon cancer Metabolic Diabetes Mellitus, Hyperlipidemia and Morbid Obesity Neuropsych Anxiety, Depression, Headache (Chronic migraines) and Syncope Hypersomnia PTSD Medications/Allergies Home Medications Medication Instructions Recorded Confirmed Last Taken Type lovastatin 10 mg tablet 10 mg PO DAILY 08/24/19 07/19/23 07/19/23 History tizanidine 4 mg capsule 4 mg PO DAILY PRN Spasms 08/24/19 07/19/23 07/16/23 History metformin 500 mg tablet 500 mg PO DAILY 04/30/20 07/19/23 07/19/23 History gabapentin 300 mg capsule 300 mg PO TID 05/12/21 07/19/23 07/19/23 History fluoxetine 40 mg capsule (Prozac) 40 mg PO QAM #30 caps 05/13/21 07/19/23 07/19/23 Rx cyproheptadine 4 mg tablet 4 mg PO .HS #30 tabs 07/01/21 07/19/23 07/18/23 Rx olanzapine 10 mg tablet (Zyprexa) 10 mg PO .bedtime #30 tabs 07/01/21 07/19/23 07/18/23 Rx [place] Knee Brace #1 ea 01/20/23 04/26/23 Unknown Rx pantoprazole 40 mg tablet,delayed 40 mg PO BID 6 weeks #84 tabs 04/26/23 07/19/23 07/19/23 Rx release (Protonix) propranolol 20 mg tablet 20 mg PO BID #60 tabs 05/06/23 07/19/23 07/19/23 Rx topiramate 100 mg tablet 100 mg PO DAILY #30 tabs 05/06/23 07/19/23 07/19/23 Rx onabotulinumtoxinA 100 unit 155 unit IM ONCE #2 ea 05/18/23 07/19/23 Unknown Rx solution for injection (Botox) albuterol sulfate 90 mcg/actuation 2 puff inhalation QID PRN 06/13/23 07/19/23 07/18/23 History aerosol inhaler Shortness Of Breath diclofenac sodium 1 % topical gel 2 g topical QID PRN Pain 06/13/23 07/19/23 07/17/23 History (Voltaren Arthritis Pain) hydroxyzine HCl 25 mg tablet 25 mg PO TID PRN Anxiety 06/13/23 07/19/23 06/13/23 History lisinopril 10 mg tablet 10 mg PO DAILY 06/13/23 07/19/23 07/19/23 History Allergies Allergy/AdvReac Type Severity Reaction Status Date / Time No Known Allergies Allergy Verified 07/19/23 09:46 Current Medications Generic Name Dose Route Start Last Admin Trade Name Freq PRN Reason Stop Dose Admin Sodium Chloride 1,000 mls @ 30 mls/hr 07/20/23 07:30 07/20/23 07:46 Sodium Chloride 0.9% IV 07/21/23 07:29 30 mls/hr .Q24H CRISTOPHER Administration PFSH Anesthesia Medical History (Updated 04/26/23 @ 13:29 by Kam Suazo DO) Family history of colon cancer Hx of cervical cancer Diabetes Type II Stimulant dependence, episodic Cannabis dependence with current use Nicotine dependence, cigarettes, uncomplicated Generalized anxiety disorder Chronic post-traumatic stress disorder Major depressive disorder, recurrent severe without psychotic features Surgical History (Updated 04/26/23 @ 13:29 by Kam Suazo DO) Hx of hysterectomy (~12/1997) History of ankle surgery History of carpal tunnel release of both wrists Family History Mother Hypertension Hyperlipidemia Diabetes Stroke Parkinson disease Father , colon cancer No problems noted. Social History Smoking and tobacco/nicotine status: current every day tobacco/nicotine user (Vapes) cigarettes Packs smoked per day: 1 Years cigarettes smoked: 14 Quit status (tobacco/nicotine): not considering quitting Second hand smoke exposure: Yes Alcohol intake: current Alcohol intake frequency: holidays/special occasions only Alcohol type: hard liquor Substance/Drug Use: current Substance/Drug use frequency: daily Other substance/drug use details: prior heavy meth use, LSD, acid Adopted: No Caregiver/support person: No Lives independently: Yes Household members: significant other Housing: Manufactured/Mobile home Marital status: Legally Marital status details: but living with current significant other for 5 years Number of children: 0 Number of grandchildren: 0 Highest education level completed: High School Graduate service: No Current occupational status: disabled Previous occupational history: wood working Pets and animals: Yes Pets & animals: cat(s) and dog(s) Pets & animal details: 2 dogs and 1 cat inside, 16 cats outside Leisure activites: other Leisure activities details: decorating her home, gardening, camping and floating Sexually active: Yes Do you think of yourself as: Straight/Heterosexual Current gender identity: Female Estrella/Jew: None Special estrella needs: No Agree to transfusion: Yes Female Reproductive History Para: 0 Spontaneous abortions: No Data Anesthesia Cardiac Studies: Echocardiogram 04/28/23 Documented by User: Ryder Felix CRNA 07/20/23 08:23 Pre-Anesthetic Assessment Preop Diagnosis: GERD/Screening Familial anesthetic complications: None Was Beta Jessica taken within 24 hours: Yes (Yesterday morning) Was Clonidine taken within 24 hours: N/A Social Tobacco (Marijuana daily) and No alcohol 1 pack(s) per day Exam alert, oriented x 3 and regular rate & rhythm Diminished BBS Airway Submandibular: within normal limits Cervical ROM: within normal limits Mallampati: Class II Dentition: chipped (Bottom right) and full History/ROS No significant history except as noted and No significant complaints Pulmonary Asthma, Cough (Chronic), Exertional Dyspnea and Shortness of Breath (Intermittent) CV/HEM Arrythmia, Myocardial Infarction (Went for heart cath but was told there were no blockages) and Palpitations None reported Hepatic None reported Musc/skel Lower Back Pain, Osteoarthritis/DJD and Rheumatoid Arthritis Neuropsych Seizure (Seizure like episodes. Being followed by neurology) Anesthetic Plan ASA status: 3 Anesthesia: Anesthesia Evaluation, General and MAC Risk of > 500 ml blood loss (7ml/kg in children): No Medications/Allergies Home Medications Medication Instructions Recorded Confirmed Last Taken Type lovastatin 10 mg tablet 10 mg PO DAILY 08/24/19 07/19/23 07/19/23 History tizanidine 4 mg capsule 4 mg PO DAILY PRN Spasms 08/24/19 07/19/23 07/16/23 History metformin 500 mg tablet 500 mg PO DAILY 04/30/20 07/19/23 07/19/23 History gabapentin 300 mg capsule 300 mg PO TID 05/12/21 07/19/23 07/19/23 History fluoxetine 40 mg capsule (Prozac) 40 mg PO QAM #30 caps 05/13/21 07/19/23 07/19/23 Rx cyproheptadine 4 mg tablet 4 mg PO .HS #30 tabs 07/01/21 07/19/23 07/18/23 Rx olanzapine 10 mg tablet (Zyprexa) 10 mg PO .bedtime #30 tabs 07/01/21 07/19/23 07/18/23 Rx [place] Knee Brace #1 ea 01/20/23 04/26/23 Unknown Rx pantoprazole 40 mg tablet,delayed 40 mg PO BID 6 weeks #84 tabs 04/26/23 07/19/23 07/19/23 Rx release (Protonix) propranolol 20 mg tablet 20 mg PO BID #60 tabs 05/06/23 07/19/23 07/19/23 Rx topiramate 100 mg tablet 100 mg PO DAILY #30 tabs 05/06/23 07/19/23 07/19/23 Rx onabotulinumtoxinA 100 unit 155 unit IM ONCE #2 ea 05/18/23 07/19/23 Unknown Rx solution for injection (Botox) albuterol sulfate 90 mcg/actuation 2 puff inhalation QID PRN 06/13/23 07/19/23 07/18/23 History aerosol inhaler Shortness Of Breath diclofenac sodium 1 % topical gel 2 g topical QID PRN Pain 06/13/23 07/19/23 07/17/23 History (Voltaren Arthritis Pain) hydroxyzine HCl 25 mg tablet 25 mg PO TID PRN Anxiety 06/13/23 07/19/23 06/13/23 History lisinopril 10 mg tablet 10 mg PO DAILY 06/13/23 07/19/23 07/19/23 History Allergies Allergy/AdvReac Type Severity Reaction Status Date / Time No Known Allergies Allergy Verified 07/19/23 09:46 [facility] Anesthesia Medical History (Updated 04/26/23 @ 13:29 by Kam Suazo DO) Family history of colon cancer Hx of cervical cancer Diabetes Type II Stimulant dependence, episodic Cannabis dependence with current use Nicotine dependence, cigarettes, uncomplicated Generalized anxiety disorder Chronic post-traumatic stress disorder Major depressive disorder, recurrent severe without psychotic features Surgical History (Updated 04/26/23 @ 13:29 by Kam Suazo DO) Hx of hysterectomy (~12/1997) History of ankle surgery History of carpal tunnel release of both wrists Family History Mother Hypertension Hyperlipidemia Diabetes Stroke Parkinson disease Father , colon cancer No problems noted. Social History Smoking and tobacco/nicotine status: current every day tobacco/nicotine user (Vapes) cigarettes Packs smoked per day: 1 Years cigarettes smoked: 14 Quit status (tobacco/nicotine): not considering quitting Second hand smoke exposure: Yes Alcohol intake: current Alcohol intake frequency: holidays/special occasions only Alcohol type: hard liquor Substance/Drug Use: current Substance/Drug use frequency: daily Other substance/drug use details: prior heavy meth use, LSD, acid Adopted: No Caregiver/support person: No Lives independently: Yes Household members: significant other Housing: Manufactured/Mobile home Marital status: Legally Marital status details: but living with current significant other for 5 years Number of children: 0 Number of grandchildren: 0 Highest education level completed: High School Graduate service: No Current occupational status: disabled Previous occupational history: wood working Pets and animals: Yes Pets & animals: cat(s) and dog(s) Pets & animal details: 2 dogs and 1 cat inside, 16 cats outside Leisure activites: other Leisure activities details: decorating her home, ga rdening, camping and floating Sexually active: Yes Do you think of yourself as: Straight/Heterosexual Current gender identity: Female Estrella/Jew: None Special estrella needs: No Agree to transfusion: Yes Data Anesthesia Cardiac Studies: Echocardiogram 04/28/23
--- NOTE | 2023-07-20 08:16 | P.ANESASSM_ITS ---
Pre-Anesthetic Assessment Height/Weight: Height 1.65 m Weight 108.862 kg Temp Pulse Resp BP Pulse Ox O2 Del Method 97.9 F 80 18 159/94 97 Room Air 07/20/23 07:34 07/20/23 07:34 07/20/23 07:34 07/20/23 07:34 07/20/23 07:34 07/20/23 07:34 Operation Date: 07/20/23 08:15 Proposed Procedures p 45357 EGD 37361 Colonscopy K21.9,Z80.0,Z12.11(Not Applicable) - Kam Suazo DO s Colonoscopy(Not Applicable) - Kam Suazo DO Last intake: Intake Last Liquid Date 07/19/23 Last Liquid Time 23:30 Last Solid Date 07/18/23 Last Solid Time 20:00 Medications/Allergies Home Medications Medication Instructions Recorded Confirmed Last Taken Type lovastatin 10 mg tablet 10 mg PO DAILY 08/24/19 07/19/23 07/19/23 History tizanidine 4 mg capsule 4 mg PO DAILY PRN Spasms 08/24/19 07/19/23 07/16/23 History metformin 500 mg tablet 500 mg PO DAILY 04/30/20 07/19/23 07/19/23 History gabapentin 300 mg capsule 300 mg PO TID 05/12/21 07/19/23 07/19/23 History fluoxetine 40 mg capsule (Prozac) 40 mg PO QAM #30 caps 05/13/21 07/19/23 07/19/23 Rx cyproheptadine 4 mg tablet 4 mg PO .HS #30 tabs 07/01/21 07/19/23 07/18/23 Rx olanzapine 10 mg tablet (Zyprexa) 10 mg PO .bedtime #30 tabs 07/01/21 07/19/23 07/18/23 Rx [place] Knee Brace #1 ea 01/20/23 04/26/23 Unknown Rx pantoprazole 40 mg tablet,delayed 40 mg PO BID 6 weeks #84 tabs 04/26/23 07/19/23 07/19/23 Rx release (Protonix) propranolol 20 mg tablet 20 mg PO BID #60 tabs 05/06/23 07/19/23 07/19/23 Rx topiramate 100 mg tablet 100 mg PO DAILY #30 tabs 05/06/23 07/19/23 07/19/23 Rx onabotulinumtoxinA 100 unit 155 unit IM ONCE #2 ea 05/18/23 07/19/23 Unknown Rx solution for injection (Botox) albuterol sulfate 90 mcg/actuation 2 puff inhalation QID PRN 06/13/23 07/19/23 07/18/23 History aerosol inhaler Shortness Of Breath diclofenac sodium 1 % topical gel 2 g topical QID PRN Pain 06/13/23 07/19/23 07/17/23 History (Voltaren Arthritis Pain) hydroxyzine HCl 25 mg tablet 25 mg PO TID PRN Anxiety 06/13/23 07/19/23 06/13/23 History lisinopril 10 mg tablet 10 mg PO DAILY 06/13/23 07/19/23 07/19/23 History pantoprazole 40 mg tablet,delayed 40 mg PO BID 6 weeks #84 tabs 07/20/23 Unknown Rx release (Protonix) sucralfate 1 gram tablet (Carafate) 1 g PO BID 4 weeks #56 tabs 07/20/23 Unknown Rx Allergies Allergy/AdvReac Type Severity Reaction Status Date / Time No Known Allergies Allergy Verified 07/19/23 09:46 Current Medications Generic Name Dose Route Start Last Admin Trade Name Freq PRN Reason Stop Dose Admin Sodium Chloride 1,000 mls @ 30 mls/hr 07/20/23 07:30 07/20/23 07:46 Sodium Chloride 0.9% IV 07/21/23 07:29 30 mls/hr .Q24H CRISTOPHER Administration PFSH Anesthesia Medical History Family history of colon cancer Hx of cervical cancer Diabetes Type II Stimulant dependence, episodic Cannabis dependence with current use Nicotine dependence, cigarettes, uncomplicated Generalized anxiety disorder Chronic post-traumatic stress disorder Major depressive disorder, recurrent severe without psychotic features Surgical History Hx of hysterectomy (~12/1997) History of ankle surgery History of carpal tunnel release of both wrists Family History Mother Hypertension Hyperlipidemia Diabetes Stroke Parkinson disease Father , colon cancer No problems noted. Social History (Reviewed 07/20/23 @ 08:56 by YOVANY Dee Smoking and tobacco/nicotine status: current every day tobacco/nicotine user (Vapes) cigarettes Packs smoked per day: 1 Years cigarettes smoked: 14 Quit status (tobacco/nicotine): not considering quitting Second hand smoke exposure: Yes Alcohol intake: current Alcohol intake frequency: holidays/special occasions only Alcohol type: hard liquor Substance/Drug Use: current Substance/Drug use frequency: daily Other substance/drug use details: prior heavy meth use, LSD, acid Adopted: No Caregiver/support person: No Lives independently: Yes Household members: significant other Housing: Manufactured/Mobile home Marital status: Legally Marital status details: but living with current significant other for 5 years Number of children: 0 Number of grandchildren: 0 Highest education level completed: High School Graduate service: No Current occupational status: disabled Previous occupational history: wood working Pets and animals: Yes Pets & animals: cat(s) and dog(s) Pets & animal details: 2 dogs and 1 cat inside, 16 cats outside Leisure activites: other Leisure activities details: decorating her home, gardening, camping and floating Sexually active: Yes Do you think of yourself as: Straight/Heterosexual Current gender identity: Female Estrella/Orthodox: None Special estrella needs: No Agree to transfusion: Yes Female Reproductive History Para: 0 Spontaneous abortions: No Data Anesthesia Cardiac Studies: Echocardiogram 04/28/23
--- NOTE | 2023-07-20 08:45 | ANES.PREANE2 ---
Pre-Anesthetic Assessment Height/Weight: Height 1.65 m Weight 108.862 kg Temp Pulse Resp BP Pulse Ox O2 Del Method 97.9 F 80 18 159/94 97 Room Air 07/20/23 07:34 07/20/23 07:34 07/20/23 07:34 07/20/23 07:34 07/20/23 07:34 07/20/23 07:34 Preop Diagnosis: GERD/Screening Operation Date: 07/20/23 08:15 Proposed Procedures p 55919 EGD 53414 Colonscopy K21.9,Z80.0,Z12.11(Not Applicable) - DO aranza Dee Colonoscopy(Not Applicable) - Kam Suazo DO Familial anesthetic complications: None Was Beta Jessica taken within 24 hours: Yes Was Clonidine taken within 24 hours: N/A Last intake: Intake Last Liquid Date 07/19/23 Last Liquid Time 23:30 Last Solid Date 07/18/23 Last Solid Time 20:00 Social Tobacco (Marijuana daily) and No alcohol 1 pack(s) per day Exam alert, oriented x 3, clear to auscultation bilaterally and regular rate & rhythm Airway Submandibular: within normal limits Cervical ROM: within normal limits Mallampati: Class II Dentition: chipped and full History/ROS No significant history except as noted and No significant complaints Pulmonary Asthma, Cough (Chronic) and Exertional Dyspnea CV/HEM Arrythmia, Hypertension, Myocardial Infarction (Went to slab lifting engineer but was told there were no blockages) and Palpitations CONCLUSIONS Possibly normal LV size and ejection fraction of 55%. Segmental wall motion analysis difficult because of the poor ultrasonic window. No gross abnormalities noted. The right atrium and right ventricle appears to be mildly dilated. No gross abnormalities noted in the aortic/mitral valves. No pericardial effusion. Technically difficult study because of poor ultrasonic window None reported Hepatic None reported GI Gastroesophageal Reflux Disease Family history of colon cancer Metabolic Diabetes Mellitus, Hyperlipidemia and Morbid Obesity Musc/skel Lower Back Pain, Osteoarthritis/DJD and Weakness Neuropsych Anxiety, Depression, Headache (Chronic migraines), Neuropathy, Seizure (Seizure like activity. Being followed by neurology) and Syncope Hypersomnia Vertigo PTSD Anesthetic Plan ASA status: 3 Anesthesia: Anesthesia Evaluation, General and MAC Risk of > 500 ml blood loss (7ml/kg in children): No Medications/Allergies Home Medications Medication Instructions Recorded Confirmed Last Taken Type lovastatin 10 mg tablet 10 mg PO DAILY 08/24/19 07/19/23 07/19/23 History tizanidine 4 mg capsule 4 mg PO DAILY PRN Spasms 08/24/19 07/19/23 07/16/23 History metformin 500 mg tablet 500 mg PO DAILY 04/30/20 07/19/23 07/19/23 History gabapentin 300 mg capsule 300 mg PO TID 05/12/21 07/19/23 07/19/23 History fluoxetine 40 mg capsule (Prozac) 40 mg PO QAM #30 caps 05/13/21 07/19/23 07/19/23 Rx cyproheptadine 4 mg tablet 4 mg PO .HS #30 tabs 07/01/21 07/19/23 07/18/23 Rx olanzapine 10 mg tablet (Zyprexa) 10 mg PO .bedtime #30 tabs 07/01/21 07/19/23 07/18/23 Rx [place] Knee Brace #1 ea 01/20/23 04/26/23 Unknown Rx pantoprazole 40 mg tablet,delayed 40 mg PO BID 6 weeks #84 tabs 04/26/23 07/19/23 07/19/23 Rx release (Protonix) propranolol 20 mg tablet 20 mg PO BID #60 tabs 05/06/23 07/19/23 07/19/23 Rx topiramate 100 mg tablet 100 mg PO DAILY #30 tabs 05/06/23 07/19/23 07/19/23 Rx onabotulinumtoxinA 100 unit 155 unit IM ONCE #2 ea 05/18/23 07/19/23 Unknown Rx solution for injection (Botox) albuterol sulfate 90 mcg/actuation 2 puff inhalation QID PRN 06/13/23 07/19/23 07/18/23 History aerosol inhaler Shortness Of Breath diclofenac sodium 1 % topical gel 2 g topical QID PRN Pain 06/13/23 07/19/23 07/17/23 History (Voltaren Arthritis Pain) hydroxyzine HCl 25 mg tablet 25 mg PO TID PRN Anxiety 06/13/23 07/19/23 06/13/23 History lisinopril 10 mg tablet 10 mg PO DAILY 06/13/23 07/19/23 07/19/23 History Allergies Allergy/AdvReac Type Severity Reaction Status Date / Time No Known Allergies Allergy Verified 07/19/23 09:46 Current Medications Generic Name Dose Route Start Last Admin Trade Name Freq PRN Reason Stop Dose Admin Sodium Chloride 1,000 mls @ 30 mls/hr 07/20/23 07:30 07/20/23 07:46 Sodium Chloride 0.9% IV 07/21/23 07:29 30 mls/hr .Q24H CRISTOPHER Administration PFSH Anesthesia Medical History (Updated 04/26/23 @ 13:29 by Kam Suazo DO) Family history of colon cancer Hx of cervical cancer Diabetes Type II Stimulant dependence, episodic Cannabis dependence with current use Nicotine dependence, cigarettes, uncomplicated Generalized anxiety disorder Chronic post-traumatic stress disorder Major depressive disorder, recurrent severe without psychotic features Surgical History (Updated 04/26/23 @ 13:29 by Kam Suazo DO) Hx of hysterectomy (~12/1997) History of ankle surgery History of carpal tunnel release of both wrists Family History Mother Hypertension Hyperlipidemia Diabetes Stroke Parkinson disease Father , colon cancer No problems noted. Social History Smoking and tobacco/nicotine status: current every day tobacco/nicotine user (Vapes) cigarettes Packs smoked per day: 1 Years cigarettes smoked: 14 Quit status (tobacco/nicotine): not considering quitting Second hand smoke exposure: Yes Alcohol intake: current Alcohol intake frequency: holidays/special occasions only Alcohol type: hard liquor Substance/Drug Use: current Substance/Drug use frequency: daily Other substance/drug use details: prior heavy meth use, LSD, acid Adopted: No Caregiver/support person: No Lives independently: Yes Household members: significant other Housing: Manufactured/Mobile home Marital status: Legally Marital status details: but living with current significant other for 5 years Number of children: 0 Number of grandchildren: 0 Highest education level completed: High School Graduate service: No Current occupational status: disabled Previous occupational history: wood working Pets and animals: Yes Pets & animals: cat(s) and dog(s) Pets & animal details: 2 dogs and 1 cat inside, 16 cats outside Leisure activites: other Leisure activities details: decorating her home, gardening, camping and floating Sexually active: Yes Do you think of yourself as: Straight/Heterosexual Current gender identity: Female Estrella/Scientology: None Special estrella needs: No Agree to transfusion: Yes Female Reproductive History Para: 0 Spontaneous abortions: No Data Anesthesia Cardiac Studies: Echocardiogram 04/28/23
--- NOTE | 2023-07-20 08:56 | P.HP_ITS ---
Providers/Chief Complaint Primary Care Provider: Michael Soto Chief Complaint: Z12.11 History of Present Illness Linda Mohr is a 52 year old female Review of Systems General: Reports: 10 or more systems reviewed and unremarkable except in HPI and below Medications/Allergies Home Medications Medication Instructions Recorded Confirmed Last Taken Type lovastatin 10 mg tablet 10 mg PO DAILY 08/24/19 07/19/23 07/19/23 History tizanidine 4 mg capsule 4 mg PO DAILY PRN Spasms 08/24/19 07/19/23 07/16/23 History metformin 500 mg tablet 500 mg PO DAILY 04/30/20 07/19/23 07/19/23 History gabapentin 300 mg capsule 300 mg PO TID 05/12/21 07/19/23 07/19/23 History fluoxetine 40 mg capsule (Prozac) 40 mg PO QAM #30 caps 05/13/21 07/19/23 07/19/23 Rx cyproheptadine 4 mg tablet 4 mg PO .HS #30 tabs 07/01/21 07/19/23 07/18/23 Rx olanzapine 10 mg tablet (Zyprexa) 10 mg PO .bedtime #30 tabs 07/01/21 07/19/23 07/18/23 Rx [place] Knee Brace #1 ea 01/20/23 04/26/23 Unknown Rx pantoprazole 40 mg tablet,delayed 40 mg PO BID 6 weeks #84 tabs 04/26/23 07/19/23 07/19/23 Rx release (Protonix) propranolol 20 mg tablet 20 mg PO BID #60 tabs 05/06/23 07/19/23 07/19/23 Rx topiramate 100 mg tablet 100 mg PO DAILY #30 tabs 05/06/23 07/19/23 07/19/23 Rx onabotulinumtoxinA 100 unit 155 unit IM ONCE #2 ea 05/18/23 07/19/23 Unknown Rx solution for injection (Botox) albuterol sulfate 90 mcg/actuation 2 puff inhalation QID PRN 06/13/23 07/19/23 07/18/23 History aerosol inhaler Shortness Of Breath diclofenac sodium 1 % topical gel 2 g topical QID PRN Pain 06/13/23 07/19/23 07/17/23 History (Voltaren Arthritis Pain) hydroxyzine HCl 25 mg tablet 25 mg PO TID PRN Anxiety 06/13/23 07/19/23 06/13/23 History lisinopril 10 mg tablet 10 mg PO DAILY 06/13/23 07/19/23 07/19/23 History Allergies Allergy/AdvReac Type Severity Reaction Status Date / Time No Known Allergies Allergy Verified 07/19/23 09:46 PFSH Acute PFSH: Medical History Family history of colon cancer Hx of cervical cancer Diabetes Type II Stimulant dependence, episodic Cannabis dependence with current use Nicotine dependence, cigarettes, uncomplicated Generalized anxiety disorder Chronic post-traumatic stress disorder Major depressive disorder, recurrent severe without psychotic features Surgical History Hx of hysterectomy (~12/1997) History of ankle surgery History of carpal tunnel release of both wrists Family History Mother Hypertension Hyperlipidemia Diabetes Stroke Parkinson disease Father , colon cancer No problems noted. Social History Smoking and tobacco/nicotine status: current every day tobacco/nicotine user (Vapes) cigarettes Packs smoked per day: 1 Years cigarettes smoked: 14 Quit status (tobacco/nicotine): not considering quitting Second hand smoke exposure: Yes Alcohol intake: current Alcohol intake frequency: holidays/special occasions only Alcohol type: hard liquor Substance/Drug Use: current Substance/Drug use frequency: daily Other substance/drug use details: prior heavy meth use, LSD, acid Adopted: No Caregiver/support person: No Lives independently: Yes Household members: significant other Housing: Manufactured/Mobile home Marital status: Legally Marital status details: but living with current significant other for 5 years Number of children: 0 Number of grandchildren: 0 Highest education level completed: High School Graduate service: No Current occupational status: disabled Previous occupational history: wood working Pets and animals: Yes Pets & animals: cat(s) and dog(s) Pets & animal details: 2 dogs and 1 cat inside, 16 cats outside Leisure activites: other Leisure activities details: decorating her home, gardening, camping and floating Sexually active: Yes Do you think of yourself as: Straight/Heterosexual Current gender identity: Female Estrella/Caodaism: None Special estrella needs: No Agree to transfusion: Yes Female Reproductive History: Para: 0 Spontaneous abortions: No Vitals/I&O/Wt Last Vital Signs Temp 97.9 F 07/20/23 07:34 Pulse 80 07/20/23 07:34 Resp 18 07/20/23 07:34 BP 159/94 07/20/23 07:34 Pulse Ox 97 07/20/23 07:34 O2 Del Method Room Air 07/20/23 07:34 Weight last 48 hrs Weight 240 lb A&P Assessment and plan (1) Colon cancer screening: (2) Family history of colon cancer: (3) GERD (gastroesophageal reflux disease): Plan EGD and colonoscopy Attestations Medical Necessity Statement*: Home Coding Level of Care Code Acute Code for Chg Fwd Diagnoses Colon cancer screening Z12.11 Family history of colon cancer Z80.0 GERD (gastroesophageal reflux disease) K21.9
[2023-07-20 09:45] VITALS: BP 135/90; PULSE 82; RESP 20; TEMP 36.1; O2SAT 100
[2023-07-20 09:54] VITALS: BP 162/83; PULSE 82; RESP 18; O2SAT 96
[2023-07-20 10:00] VITALS: BP 137/106; PULSE 77; RESP 18; O2SAT 100
--- NOTE | 2023-07-20 15:54 | ANE.PACU2 ---
Inpatient post-anesthesia follow up: Airway intact: Yes Vital signs: Temperature 97.0 F Pulse Rate 77 Respiratory Rate 18 Blood Pressure 137/106 Pulse Oximetry 100 Oxygen Delivery Me thod Room Air Oxygen Flow Rate Fraction of Inspir ed Oxygen Hydration adequate: Yes Nausea and vomiting: No Pain level: 2 Mental status: Baseline
== END 2023-07-20 10:25 | disposition home or self-care (01) ==
PROVIDERS: PCP Family Medicine; Visit Provider Surgery
PROC: 0DJ08ZZ Inspection of Upper Intestinal Tract, Via Natural or Artificial Opening Endoscopic (ICD-10-PCS; CPT 43235; principal; 2023-07-20 08:15)
PROC: 0DJD8ZZ Inspection of Lower Intestinal Tract, Via Natural or Artificial Opening Endoscopic (ICD-10-PCS; CPT 45378; 2023-07-20 08:15)
DX: Z12.11 Encounter for screening for malignant neoplasm of colon (principal); K57.30 Diverticulosis of large intestine without perforation or abscess without bleeding; D12.2 Benign neoplasm of ascending colon; D12.5 Benign neoplasm of sigmoid colon; D12.3 Benign neoplasm of transverse colon; K21.00 Gastro-esophageal reflux disease with esophagitis, without bleeding; K22.70 Barrett's esophagus without dysplasia; K29.70 Gastritis, unspecified, without bleeding; Z80.0 Family history of malignant neoplasm of digestive organs; Z85.038 Personal history of other malignant neoplasm of large intestine; E11.9 Type 2 diabetes mellitus without complications; F17.290 Nicotine dependence, other tobacco product, uncomplicated; E78.5 Hyperlipidemia, unspecified; E66.01 Morbid (severe) obesity due to excess calories; Z68.39 Body mass index [BMI] 39.0-39.9, adult; I10 Essential (primary) hypertension; I25.2 Old myocardial infarction
CPT/HCPCS: 36416; 43239; 45381; 45385; 82962; 88305; 88342; J2704; J7030

== ENCOUNTER → 2023-07-27 16:47 | Outpatient (BNVA) | payer MEDICARE, MEDICAID, SELFPAY ==
[2019-09-26 11:36] VITALS: BP 154/97; BMI 40.2
== END ==
PROVIDERS: PCP Family Medicine; Visit Provider Surgery
DX: Z12.11 Encounter for screening for malignant neoplasm of colon; Z80.0 Family history of malignant neoplasm of digestive organs; K21.9 Gastro-esophageal reflux disease without esophagitis
CPT/HCPCS: 99024; 99212

== ENCOUNTER 2023-08-21 13:59 | Emergency (ER) | payer MEDICARE, MEDICAID, SELFPAY ==
[2019-09-26 11:36] VITALS: BP 154/97; BMI 40.2
[2023-08-21 14:12] VITALS: BP 184/86; PULSE 69; RESP 16; TEMP 36.7; O2SAT 96; BMI 40.2
--- NOTE | 2023-08-21 14:42 | ED_ITS ---
HPI - Back Pain/Injury General: Chief Complaint: Back Pain/Injury Stated Complaint: low back pain Time Seen by Provider: 08/21/23 14:42 History of Present Illness: 52-year-old female comes in today with c omplaints of low back pain. 1 week ago patient was moving furniture and doing housekeeping when she strained her back. Over the last 3 days patient is had increased pain and discomfort to the lumbar area of her back and increasing discomfort with movement ambulation. Patient appears nontoxic. Patient appears in mild pain at rest. Patient has a known history of intervertebral disc disease of the lumbar spine. Patient was last seen for her back pain was 5 years ago and at that time surgery was not necessary. Patient has used some tizanidine at bedtime for some relief of pain. Patient reports no loss of bowel or bladder control. Patient denies any fever. Patient denies any falls or injury. Review of Systems General: Reports: 10 or more systems reviewed and unremarkable except in HPI and below Musc: Reports: back pain PFSH ED PFSH: Medical History Family history of colon cancer Hx of cervical cancer Diabetes Type II Stimulant dependence, episodic Cannabis dependence with current use Nicotine dependence, cigarettes, uncomplicated Generalized anxiety disorder Chronic post-traumatic stress disorder Major depressive disorder, recurrent severe without psychotic features Surgical History Hx of hysterectomy (~12/1997) History of ankle surgery History of carpal tunnel release of both wrists Family History Mother Hypertension Hyperlipidemia Diabetes Stroke Parkinson disease Father , colon cancer No problems noted. Social History Smoking and tobacco/nicotine status: current every day tobacco/nicotine user (Vapes) cigarettes Packs smoked per day: 1 Years cigarettes smoked: 14 Quit status (tobacco/nicotine): not considering quitting Second hand smoke exposure: Yes Alcohol intake: current Alcohol intake frequency: holidays/special occasions only Alcohol type: hard liquor Substance/Drug Use: current Substance/Drug use frequency: daily Other substanc e/drug use details: prior heavy meth use, LSD, acid Adopted: No Caregiver/support person: No Lives independently: Yes Household members: significant other Housing: Manufactured/Mobile home Marital status: Legally Marital status details: but living with current significant other for 5 years Number of children: 0 Number of grandchildren: 0 Highest education level completed: High School Graduate service: No Current occupational status: disabled Previous occupational history: wood working Pets and animals: Yes Pets & animals: cat(s) and dog(s) Pets & animal details: 2 dogs and 1 cat inside, 16 cats outside Leisure activites: other Leisure activities details: decorating her home, gardening, camping and floating Sexually active: Yes Do you think of yourself as: Straight/Heterosexual Current gender identity: Female Estrella/Zoroastrian: None Special estrella needs: No Agree to transfusion: Yes Female Reproductive History: Para: 0 Spontaneous abortions: No Physical Exam Const: COMMON NORMALS: alert HENMT: COMMON NORMALS: normocephalic HEAD & SCALP: normocephalic Neck/C-Spine: COMMON NORMALS: full ROM Resp: COMMON NORMALS: normal respiratory effort and clear to auscultation bilaterally AUSCULTATION: clear to auscultation bilaterally Cardio: COMMON NORMALS: regular rate RATE: regular rate Back/Pelvis: LUMBAR SPINE/LOWER BACK: Yes lumbar spinal tenderness Lumbar spinal tenderness location: L5 Extremity: COMMON NORMALS: normal to inspection and full ROM Neuro: SENSORIUM/ORIENTATION: Yes alert Skin: COMMON NORMALS: turgor normal GENERAL SKIN EXAM: turgor normal Course Vital Signs: Vital signs: Vital Signs Temperature 98.0 F 08/21/23 14:12 Pulse Rate 69 08/21/23 14:12 Respiratory Rate 18 08/21/23 15:06 Blood Pressure 184/86 08/21/23 14:12 Pulse Oximetry 96 08/21/23 14:12 Oxygen Delivery Me thod Room Air 08/21/23 14:12 MDM - Back Pain/Injury Medical Decision Making 52-year-old female comes in today with complaints of low back pain. On exam patient has pain on palpation of L5-S1 area of her lumbar spine. Patient has muscle tightness bilaterally. Abdomen soft nontender. Distal pulses are intact. Skin is warm and dry. Differential diagnosis includes but not limited to intervertebral disc disease, facet arthropathy, lumbar strain. Patient reports no radiculopathy at this time. Patient reports no loss of bowel or bladder control. Patient was given a dose of hydromorphone 1 mg and 30 mg of ketorolac and 10 mg dexamethasone. Patient be continued on celecoxib 200 mg twice a day, 20 mg of prednisone twice a day, and hydrocodone for severe pain. materials management manager was requested to have patient follow-up with orthopedic spine for further evaluation and treatment. Patient and family both reported understanding of care plan need for follow-up or return to the ER. No radiology studies performed this visit Discharge Plan Discharge Patient Disposition: Home Clinical Impression: Intervertebral disc degeneration Qualifiers: Spinal region: lumbosacral Qualified Code(s): M51.37 - Other intervertebral disc degeneration, lumbosacral region Condition: Stable Prescriptions: New prednisone 20 mg tablet 20 mg PO BID 5 Days Qty: 10 0RF celecoxib 200 mg capsule 200 mg PO BID Qty: 30 0RF hydrocodone-acetaminophen 5-325 mg tablet 1 tab PO Q6H PRN (Reason: pain (scale score 7-10)) Qty: 12 0RF No Action tizanidine 4 mg capsule 4 mg PO DAILY PRN (Reason: Spasms) lovastatin 10 mg tablet 10 mg PO DAILY gabapentin 300 mg capsule 300 mg PO TID metformin 500 mg tablet 500 mg PO DAILY fluoxetine [Prozac] 40 mg capsule 40 mg PO QAM Qty: 30 3RF Rx Instructions: Take one capsule every morning (DME) [place] Knee Brace See Rx Instructions .Route .MEDSUPPLY Qty: 1 0RF Rx Instructions: As directed pantoprazole [Protonix] 40 mg tablet,delayed release (DR/EC) 40 mg PO BID 42 Days Qty: 84 0RF cyproheptadine 4 mg tablet 4 mg PO .HS Qty: 30 3RF Rx Instructions: Take one tablet at bedtime olanzapine [Zyprexa] 10 mg tablet 10 mg PO .bedtime Qty: 30 3RF Rx Instructions: Take one tablet at bedtime propranolol 20 mg tablet 20 mg PO BID Qty: 60 1RF topiramate 100 mg tablet 100 mg PO DAILY Qty: 30 0RF Botox 100 unit recon soln 155 unit IM ONCE Qty: 2 0RF Rx Instructions: Use FDA protocol for migraines. EVERY 90 DAYS lisinopril 10 mg tablet 10 mg PO DAILY hydroxyzine HCl 25 mg tablet 25 mg PO TID PRN (Reason: Anxiety) albuterol sulfate 90 mcg/actuation HFA aerosol inhaler 2 puff INHALATION QID PRN (Reason: Shortness Of Breath) diclofenac sodium [Voltaren Arthritis Pain] 1 % Gel 2 g TOPICAL QID PRN (Reason: Pain) Rx Instructions: apply to single elbow, wrist or hand; for hand includes palm/fingers/back of hand Protonix 40 mg tablet,delayed release (DR/EC) 40 mg PO BID 42 Days Qty: 84 1RF Discharge Orders: Discharge ED (Routine); Ordered 08/21/23 Ordered By: Severo Ventura Referrals: Michael Soto [Primary Care Provider] - Discharge Diet: Usual diet Discharge Activity: Increase activity as tolerated Patient Instructions: Back Pain (ED) Activity Restrictions/Additional Instructions: Maintain activity as tolerated. Use a walker to assist with ambulation. Use ice and heat for further pain control. Drink plenty of water with medications. Case management will contact you regarding follow-up appointment with orthopedic cryptologic support specialist. Return to ER for worsening symptoms such as high fever, inability to hold bowel or bladder, or new concerns. Coding Level of Care Code ED Claim Administrator for Christ Cowan
[2023-08-21 15:06] VITALS: RESP 18
[2023-08-21] MEDS: HYDROmorphone 1 mg/mL INJ 1 mL IM (15:06)
[2023-08-21] MEDS: ketorolac 30 mg/mL INJ IM (15:07)
[2023-08-21] MEDS: dexamethasone 10 mg/mL INJ IM (15:09)
--- NOTE | 2023-08-22 07:46 | DCPLANNER ---
Message was sent to ortho on 08/22/23 at 0747 am. Clinic to contact patient
== END 2023-08-21 15:23 | disposition home or self-care (01) ==
PROVIDERS: Emergency Provider Nurse Practitioner Family; PCP Family Medicine
DX: M51.37 Other intervertebral disc degeneration, lumbosacral region (principal); Z79.84 Long term (current) use of oral hypoglycemic drugs; Z85.41 Personal history of malignant neoplasm of cervix uteri; E11.9 Type 2 diabetes mellitus without complications; F17.290 Nicotine dependence, other tobacco product, uncomplicated
CPT/HCPCS: 96372; 99284; J1100; J1170; J1885

== ENCOUNTER → 2023-09-01 13:29 | Outpatient (BNVA) | payer MEDICARE, MEDICAID, SELFPAY ==
[2019-09-26 11:36] VITALS: BP 154/97; BMI 40.2
== END ==
PROVIDERS: PCP Family Medicine; Referring Provider Nurse Practitioner Family; Visit Provider Orthopaedic Surgery
DX: M48.062 Spinal stenosis, lumbar region with neurogenic claudication
CPT/HCPCS: 72120; 99204

== ENCOUNTER → 2023-10-13 10:58 | Outpatient (BNVA) | payer MEDICARE, MEDICAID, SELFPAY ==
[2019-09-26 11:36] VITALS: BP 154/97; BMI 40.2
== END ==
PROVIDERS: PCP Family Medicine; Visit Provider Specialist
DX: G43.711 Chronic migraine without aura, intractable, with status migrainosus (principal); M48.062 Spinal stenosis, lumbar region with neurogenic claudication; R55 Syncope and collapse
CPT/HCPCS: 64615; 99213; J0585

== ENCOUNTER → 2024-01-12 10:45 | Outpatient (BNVA) | payer MEDICARE, MEDICAID, SELFPAY ==
[2019-09-26 11:36] VITALS: BP 154/97; BMI 40.2
== END ==
PROVIDERS: PCP Family Medicine; Visit Provider Specialist
DX: G43.711 Chronic migraine without aura, intractable, with status migrainosus (principal); M48.062 Spinal stenosis, lumbar region with neurogenic claudication; R55 Syncope and collapse; F17.200 Nicotine dependence, unspecified, uncomplicated
CPT/HCPCS: 64615; 99214; J0585

== ENCOUNTER 2024-03-14 06:02 | Day surgery (SDC) | payer MEDICARE, MEDICAID, SELFPAY ==
[2019-09-26 11:36] VITALS: BP 154/97; BMI 40.2
[2024-03-14 06:19] VITALS: BP 142/88; PULSE 78; RESP 17; TEMP 36.6; O2SAT 98; BMI 39.1
[2024-03-14] MEDS: sodium chloride 0.9% 1,000 ML 30 ML IV (06:25)
[2024-03-14 06:36] LABS: Glucose Point of Care 117 mg/dL (70-110)
--- NOTE | 2024-03-14 06:42 | P.ANESASSM_ITS ---
Pre-Anesthetic Assessment Height/Weight: Height 1.65 m Weight 106.594 kg Temp Pulse Resp BP Pulse Ox O2 Del Method 97.8 F 78 17 142/88 98 Room Air 03/14/24 06:19 03/14/24 06:19 03/14/24 06:19 03/14/24 06:19 03/14/24 06:19 03/14/24 06:19 Operation Date: 03/14/24 07:00 Proposed Procedures p Colonoscopy 80143, G0105, Z80.0(Not Applicable) - Kam Suazo DO Familial anesthetic complications: None Was Beta Jessica taken within 24 hours: Yes Was Clonidine taken within 24 hours: N/A Last intake: Intake Last Liquid Date 03/13/24 Last Liquid Time 23:30 Last Solid Date 03/12/24 Last Solid Time 17:00 Social Tobacco and No alcohol 3 cig/day, marijuana daily (last used 3 days) pack(s) per day Exam alert, oriented x 3, clear to auscultation bilaterally and regular rate & rhythm Airway Submandibular: within normal limits Cervical ROM: within normal limits Mallampati: Class II Dentition: full Comments: Comments: Several missing History/ROS No significant history except as noted and No significant complaints Pulmonary Chronic Obstructive Pulmonary Disease, Cough and Exertional Dyspnea CV/HEM Arrythmia, Coronary Artery Disease, Hypertension, Myocardial Infarction (2016 no intervention) and Palpitations CONCLUSIONS Possibly normal LV size and ejection fraction of 55%. Segmental wall motion analysis difficult because of the poor ultrasonic window. No gross abnormalities noted. The right atrium and right ventricle appears to be mildly dilated. No gross abnormalities noted in the aortic/mitral valves. No pericardial effusion. Technically difficult study because of poor ultrasonic window None reported Hepatic None reported GI Gastroesophageal Reflux Disease (None this morning, controlled with meds) and Peptic Ulcer Disease Metabolic Diabetes Mellitus, Hyperlipidemia and Morbid Obesity Musc/skel Lower Back Pain, Osteoarthritis/DJD and Weakness Neuropsych Anxiety, Depression, Headache (migraines), Neuropathy and Seizure (Seizure like activity, currently seeing a neurologist) Anesthetic Plan ASA status: 3 Anesthesia: Anesthesia Evaluation, General and MAC Risk of > 500 ml blood loss (7ml/kg in children): No Medications/Allergies Home Medications Medication Instructions Recorded Confirmed Last Taken Type lovastatin 10 mg tablet 10 mg PO DAILY 08/24/19 03/12/24 03/13/24 History tizanidine 4 mg capsule 4 mg PO DAILY PRN Spasms 08/24/19 03/12/24 07/16/23 History metformin 500 mg tablet 500 mg PO DAILY 04/30/20 03/12/24 03/13/24 History gabapentin 300 mg capsule 300 mg PO TID 05/12/21 03/12/24 03/13/24 History fluoxetine 40 mg capsule (Prozac) 40 mg PO QAM #30 caps 05/13/21 03/12/24 03/11/24 Rx cyproheptadine 4 mg tablet 4 mg PO .HS #30 tabs 07/01/21 03/12/24 03/13/24 Rx olanzapine 10 mg tablet (Zyprexa) 10 mg PO .bedtime #30 tabs 07/01/21 03/12/24 03/13/24 Rx [place] Knee Brace #1 ea 01/20/23 03/12/24 Unknown Rx pantoprazole 40 mg tablet,delayed 40 mg PO BID 6 weeks #84 tabs 04/26/23 03/12/24 03/13/24 Rx release (Protonix) propranolol 20 mg tablet 20 mg PO BID #60 tabs 05/06/23 03/12/24 03/13/24 Rx onabotulinumtoxinA 100 unit 155 unit IM ONCE #2 ea 05/18/23 03/12/24 Unknown Rx solution for injection (Botox) albuterol sulfate 90 mcg/actuation 2 puff inhalation QID PRN 06/13/23 03/12/24 07/18/23 History aerosol inhaler Shortness Of Breath diclofenac sodium 1 % topical gel 2 g topical QID PRN Pain 06/13/23 03/12/24 07/17/23 History (Voltaren Arthritis Pain) hydroxyzine HCl 25 mg tablet 25 mg PO TID PRN Anxiety 06/13/23 03/12/24 03/13/24 History lisinopril 10 mg tablet 10 mg PO DAILY 06/13/23 03/12/24 03/13/24 History celecoxib 200 mg capsule 200 mg PO BID #30 caps 08/21/23 03/12/24 03/13/24 Rx varenicline 1 mg tablet (Chantix) 1 mg PO BID #60 tabs 01/12/24 03/12/24 03/13/24 Rx topiramate 100 mg tablet See Rx Instructions .Route 02/15/24 03/12/24 03/13/24 Rx .COMPLEX #30 tabs Allergies Allergy/AdvReac Type Severity Reaction Status Date / Time No Known Allergies Allergy Verified 01/12/24 10:55 Current Medications Generic Name Dose Route Start Last Admin Trade Name Kaylah PRN Reason Stop Dose Admin Sodium Chloride 1,000 mls @ 30 mls/hr 03/14/24 06:15 03/14/24 06:25 Sodium Chloride 0.9% IV 03/15/24 06:14 30 mls/hr .Q24H CRISTOPHER Administration PFSH Anesthesia Medical History Family history of colon cancer Hx of cervical cancer Diabetes Type II Stimulant dependence, episodic Cannabis dependence with current use Nicotine dependence, cigarettes, uncomplicated Generalized anxiety disorder Chronic post-traumatic stress disorder Major depressive disorder, recurrent severe without psychotic features Surgical History Hx of hysterectomy (~12/1997) History of ankle surgery History of carpal tunnel release of both wrists Family History Mother Hypertension Hyperlipidemia Diabetes Stroke Parkinson disease Father , colon cancer No problems noted. Social History Smoking and tobacco/nicotine status: current every day tobacco/nicotine user cigarettes Packs smoked per day: 1 Years cigarettes smoked: 14 Quit status (tobacco/nicotine): not considering quitting Second hand smoke exposure: Yes Alcohol intake: current Alcohol intake frequency: holidays/special occasions only Alcohol type: hard liquor Substance/Drug Use: current Substance/Drug use frequency: daily Other substance/drug use details: prior heavy meth use, LSD, acid Adopted: No Caregiver/support person: No Lives independently: Yes Household members: significant other Housing: Manufactured/Mobile home Marital status: Legally Marital status details: but living with current significant other for 5 years Number of children: 0 Number of grandchildren: 0 Highest education level completed: High School Graduate service: No Current occupational status: disabled Previous occupational history: wood working Pets and animals: Yes Pets & animals: cat(s) and dog(s) Pets & animal details: 2 dogs and 1 cat inside, 16 cats outside Leisure activites: other Leisure activities details: decorating her home, gardening, camping and floating Sexually active: Yes Do you think of yourself as: Straight/Heterosexual Current gender identity: Female Estrella/Anabaptism: None Special estrella needs: No Agree to transfusion: Yes Female Reproductive History Para: 0 Spontaneous abortions: No Data Anesthesia Cardiac Studies: Echocardiogram 04/28/23
--- NOTE | 2024-03-14 07:01 | P.HP_ITS ---
Providers/Chief Complaint Primary Care Provider: Michael Soto Chief Complaint: Z80.0 History of Present Illness Linda Mohr is a 53 year old female Review of Systems General: Reports: 10 or more systems reviewed and unremarkable except in HPI and below Medications/Allergies Home Medications Medication Instructions Recorded Confirmed Last Taken Type lovastatin 10 mg tablet 10 mg PO DAILY 08/24/19 03/12/24 03/13/24 History tizanidine 4 mg capsule 4 mg PO DAILY PRN Spasms 08/24/19 03/12/24 07/16/23 History metformin 500 mg tablet 500 mg PO DAILY 04/30/20 03/12/24 03/13/24 History gabapentin 300 mg capsule 300 mg PO TID 05/12/21 03/12/24 03/13/24 History fluoxetine 40 mg capsule (Prozac) 40 mg PO QAM #30 caps 05/13/21 03/12/24 03/11/24 Rx cyproheptadine 4 mg tablet 4 mg PO .HS #30 tabs 07/01/21 03/12/24 03/13/24 Rx olanzapine 10 mg tablet (Zyprexa) 10 mg PO .bedtime #30 tabs 07/01/21 03/12/24 03/13/24 Rx [place] Knee Brace #1 ea 01/20/23 03/12/24 Unknown Rx pantoprazole 40 mg tablet,delayed 40 mg PO BID 6 weeks #84 tabs 04/26/23 03/12/24 03/13/24 Rx release (Protonix) propranolol 20 mg tablet 20 mg PO BID #60 tabs 05/06/23 03/12/24 03/13/24 Rx onabotulinumtoxinA 100 unit 155 unit IM ONCE #2 ea 05/18/23 03/12/24 Unknown Rx solution for injection (Botox) albuterol sulfate 90 mcg/actuation 2 puff inhalation QID PRN 06/13/23 03/12/24 07/18/23 History aerosol inhaler Shortness Of Breath diclofenac sodium 1 % topical gel 2 g topical QID PRN Pain 06/13/23 03/12/24 07/17/23 History (Voltaren Arthritis Pain) hydroxyzine HCl 25 mg tablet 25 mg PO TID PRN Anxiety 06/13/23 03/12/24 03/13/24 History lisinopril 10 mg tablet 10 mg PO DAILY 06/13/23 03/12/24 03/13/24 History celecoxib 200 mg capsule 200 mg PO BID #30 caps 08/21/23 03/12/24 03/13/24 Rx varenicline 1 mg tablet (Chantix) 1 mg PO BID #60 tabs 01/12/24 03/12/24 03/13/24 Rx topiramate 100 mg tablet See Rx Instructions .Route 02/15/24 03/12/24 03/13/24 Rx .COMPLEX #30 tabs Allergies Allergy/AdvReac Type Severity Reaction Status Date / Time No Known Allergies Allergy Verified 01/12/24 10:55 PFSH Acute PFSH: Medical History Family history of colon cancer Hx of cervical cancer Diabetes Type II Stimulant dependence, episodic Cannabis dependence with current use Nicotine dependence, cigarettes, uncomplicated Generalized anxiety disorder Chronic post-traumatic stress disorder Major depressive disorder, recurrent severe without psychotic features Surgical History Hx of hysterectomy (~12/1997) History of ankle surgery History of carpal tunnel release of both wrists Family History Mother Hypertension Hyperlipidemia Diabetes Stroke Parkinson disease Father , colon cancer No problems noted. Social History Smoking and tobacco/nicotine status: current every day tobacco/nicotine user cigarettes Packs smoked per day: 1 Years cigarettes smoked: 14 Quit status (tobacco/nicotine): not considering quitting Second hand smoke exposure: Yes Alcohol intake: current Alcohol intake frequency: holidays/special occasions only Alcohol type: hard liquor Substance/Drug Use: current Substance/Drug use frequency: daily Other substance/drug use details: prior heavy meth use, LSD, acid Adopted: No Caregiver/support person: No Lives independently: Yes Household members: significant other Housing: Manufactured/Mobile home Marital status: Legally Marital status details: but living with current significant other for 5 years Number of children: 0 Number of grandchildren: 0 Highest education level completed: High School Graduate service: No Current occupational status: disabled Previous occupational history: wood working Pets and animals: Yes Pets & animals: cat(s) and dog(s) Pets & animal details: 2 dogs and 1 cat inside, 16 cats outside Leisure activites: other Leisure activities details: decorating her home, gardening, camping and floating Sexually active: Yes Do you think of yourself as: Straight/Heterosexual Current gender identity: Female Estrella/Christianity: None Special estrella needs: No Agree to transfusion: Yes Female Reproductive History: Para: 0 Spontaneous abortions: No Vitals/I&O/Wt Last Vital Signs Temp 97.8 F 03/14/24 06:19 Pulse 78 03/14/24 06:19 Resp 17 03/14/24 06:19 BP 142/88 03/14/24 06:19 Pulse Ox 98 03/14/24 06:19 O2 Del Method Room Air 03/14/24 06:19 Weight last 48 hrs Weight 235 lb A&P Assessment and plan (1) Family history of colon cancer: (2) History of colon polyps: Plan Short-term follow-up colonoscopy was recommended 8 months ago due to high-grade dysplasia found in 1 of multiple polyps. She did not return for colonoscopy until today Colonoscopy The risks and benefits of the procedure, including bleeding, infection, intestinal perforation requiring surgery, missed lesion were explained to the patient. The patient is understanding of the risks and wishes to proceed. Attestations Medical Necessity Statement*: Home Coding Level of Care Code Acute Code for Chg Fwd Diagnoses Family history of colon cancer Z80.0 History of colon polyps Z86.010
[2024-03-14 07:30] VITALS: BP 127/85; PULSE 68; RESP 18; TEMP 36.1; O2SAT 97
--- NOTE | 2024-03-14 07:44 | ANES.PROC ---
Anesthesia Procedures Procedure/Date: 03/14/24 Epidural: Time Out Performed: Yes Consents Signed: Procedure Consent Consent: requested by attending/covering physician and risks and benefits reviewed Lumbar Level: L2-L3 Epidural position: sitting Epidural procedure: sterile prep of area, 1% lidocaine to numb the area, neg for paresthesia, test dose given and sterile dressing applied Additional Comments: Cabrera Santiago CRNA
[2024-03-14 07:45] VITALS: BP 114/90; PULSE 70; RESP 16; TEMP 36.6; O2SAT 98
--- NOTE | 2024-03-14 08:00 | ANE.PACU2 ---
Inpatient post-anesthesia follow up: Airway intact: Yes Vital signs: Temperature 97.8 F Pulse Rate 70 Respiratory Rate 16 Blood Pressure 114/90 Pulse Oximetry 98 Oxygen Delivery Me thod Room Air Oxygen Flow Rate Fraction of Inspir ed Oxygen Hydration adequate: Yes Nausea and vomiting: No Pain level: 1 Mental status: Baseline
== END 2024-03-14 08:08 | disposition home or self-care (01) ==
PROVIDERS: PCP Family Medicine; Visit Provider Surgery
PROC: 0DJD8ZZ Inspection of Lower Intestinal Tract, Via Natural or Artificial Opening Endoscopic (ICD-10-PCS; CPT 45378; principal; 2024-03-14 07:00)
DX: Z12.11 Encounter for screening for malignant neoplasm of colon (principal); Z80.0 Family history of malignant neoplasm of digestive organs; D12.4 Benign neoplasm of descending colon; K57.30 Diverticulosis of large intestine without perforation or abscess without bleeding; K64.8 Other hemorrhoids; F17.210 Nicotine dependence, cigarettes, uncomplicated; J44.9 Chronic obstructive pulmonary disease, unspecified; I25.10 Atherosclerotic heart disease of native coronary artery without angina pectoris; I10 Essential (primary) hypertension; I25.2 Old myocardial infarction; K21.9 Gastro-esophageal reflux disease without esophagitis; Z87.11 Personal history of peptic ulcer disease; E11.9 Type 2 diabetes mellitus without complications; E78.5 Hyperlipidemia, unspecified; E66.01 Morbid (severe) obesity due to excess calories; Z68.39 Body mass index [BMI] 39.0-39.9, adult; Z79.84 Long term (current) use of oral hypoglycemic drugs; Z85.41 Personal history of malignant neoplasm of cervix uteri
CPT/HCPCS: 36416; 45385; 82962; 88305; J2371; J2704; J7030

== ENCOUNTER → 2024-04-06 12:24 | Outpatient (BNVA) | payer MEDICARE, MEDICAID, SELFPAY ==
[2019-09-26 11:36] VITALS: BP 154/97; BMI 40.2
== END ==
PROVIDERS: PCP Family Medicine; Visit Provider Surgery
DX: D37.4 Neoplasm of uncertain behavior of colon (principal)
CPT/HCPCS: 99212

== ENCOUNTER → 2024-07-27 12:48 | Outpatient (BNVA) | payer MEDICARE, MEDICAID, SELFPAY ==
[2019-09-26 11:36] VITALS: BP 154/97; BMI 40.2
== END ==
PROVIDERS: PCP Family Medicine; Visit Provider Specialist
DX: G43.711 Chronic migraine without aura, intractable, with status migrainosus (principal); F43.12 Post-traumatic stress disorder, chronic; R26.9 Unspecified abnormalities of gait and mobility
CPT/HCPCS: 64615; J0585

== ENCOUNTER → 2025-02-04 14:17 | Outpatient (BNVA) | payer MEDICARE, MEDICAID, SELFPAY ==
[2019-09-26 11:36] VITALS: BP 154/97; BMI 40.2
== END ==
PROVIDERS: PCP Family Medicine; Visit Provider Specialist
DX: G43.711 Chronic migraine without aura, intractable, with status migrainosus (principal)
CPT/HCPCS: 64615; J0585; J9999

== ENCOUNTER → 2025-05-23 13:16 | Outpatient (BNVA) | payer MEDICARE, SELFPAY ==
[2019-09-26 11:36] VITALS: BP 154/97; BMI 40.2
== END ==
PROVIDERS: PCP Family Medicine; Visit Provider Specialist
DX: G43.711 Chronic migraine without aura, intractable, with status migrainosus (principal); F43.12 Post-traumatic stress disorder, chronic; R26.9 Unspecified abnormalities of gait and mobility
CPT/HCPCS: 64615; J0585; J9999